=== PATIENT | female | born 1985 | race Caucasian/White ===

== ENCOUNTER 2023-06-13 19:48 | Observation (INO) ==
--- NOTE | 2023-06-13 20:06 | Emergency Department Note ---
History of Present Illness General Chief complaint: Cardiac Assessment Stated complaint: CHEST/BACK/ARM PAIN,RT SIDE, HEART ATTACK HISTORY Time Seen by Provider: 06/13/23 19:56 History of Present Illness Maximum Pain Intensity: 6 37-year-old female with a history of hypertension and acute ND, 1 stent last year, current smoker presents with an onset of right-sided chest pain that radiated to her shoulder and down her right arm. With also a headache; patient denies any significant shortness of breath hemoptysis trauma to her chest. Patient is taking 3 blood pressure medications as well she took aspirin prior to arrival. Patient states the pain is intermittent located in her right chest that radiates down her right arm. There are no other mitigating or alleviating factors Allergies Allergy/AdvReac Type Severity Reaction Status Date / Time cat dander Allergy Sneezing Verified 06/13/23 20:23 Penicillins Allergy Difficulty Verified 06/13/23 20:23 Breathing Past Med/Surg History Social History Smoking Status: Current every day smoker Preferred Language: Chinese Feels Safe at Home: Yes Immunizations: Past medical history coronary artery disease, hypertension, smoker Past surgical history includes 1 stent Review of Systems A total of 10 systems reviewed and were otherwise negative Cardiovascular: + chest pain Physical Exam Vital Signs Vital Signs - 24 hr 06/13/23 19:53 06/13/23 20:07 06/13/23 20:19 Temperature 36.4 C L Temperature Source Oral Pulse Rate 66 63 Pulse Rate [Apical] Pulse Rhythm [Apical] Respiratory Rate 18 Respiratory Effort / Characteristics Non-Labored Spontaneous Respiratory Depth Normal Respiratory Pattern Regular Blood Pressure 139/99 Blood Pressure [Right Arm] Blood Pressure Mean 112 Blood Pressure Mean [Right Arm] Blood Pressure Position Sitting Pulse Oximetry 94 95 Oxygen Delivery Method Room Air Room Air Sepsis Recent Fever Within 48 Hours No Sepsis New/Unexplained Change in Mental Status N/A Sepsis Action Taken by Nursing No Action Required 06/13/23 20:19 06/13/23 20:20 06/13/23 22:00 Temperature Temperature Source Pulse Rate 59 L Pulse Rate [Apical] 59 L 63 Pulse Rhythm [Apical] Regular Respiratory Rate 19 19 19 Respiratory Effort / Characteristics Non-Labored Respiratory Depth Normal Respiratory Pattern Regular Blood Pressure Blood Pressure [Right Arm] 157/100 H 181/108 H Blood Pressure Mean Blood Pressure Mean [Right Arm] 119 132 Blood Pressure Position Pulse Oximetry 94 95 96 Oxygen Delivery Method Room Air Room Air Sepsis Recent Fever Within 48 Hours Sepsis New/Unexplained Change in Mental Status Sepsis Action Taken by Nursing GENERAL: Patient is awake alert in no acute distress patient is resting comfortably and showing no signs of anxiety EYES: The conjunctivae are clear. The pupils are round and reactive. EARS, NOSE, MOUTH AND THROAT: The nose is without any evidence of any deformity. Mucous membranes are moist. Tongue is midline. NECK: The neck is nontender and supple. RESPIRATORY: Normal respiratory effort is noted there is no evidence of wheezing rhonchi or rales CARDIOVASCULAR: Regular rate and rhythm noted there no murmurs rubs or gallops normal S1 normal S2. GASTROINTESTINAL: The abdomen is soft. Abdomen is nontender. BACK: No midline tenderness or or step-off noted range of motion in flexion extension as well as rotation no signs of muscle spasm noted MUSCULOSKELETAL/EXTREMITIES: There is no evidence of gross deformity full range of motion is noted in the hips and shoulders. SKIN: There is no obvious evidence of any rash. There are no petechiae, pallor or cyanosis noted. NEUROLOGIC: Patient is awake alert and oriented x3 strength is symmetric Course Reevaluation(s) Reevaluation #1: Patient resting in no distress. No current chest pain. Patient has taken aspirin in the past 24 hours. Time: 22:20 Consultations Consultation #1: Case was discussed with the [facility]ist for admission Time: 22:20 Medical Decision Making Medical Records Attestation: I reviewed the patient's medical records. Home Medications Current Medication List: was personally reviewed by me Laboratory Data Attestation: I reviewed the patient's lab results. Labs interpreted by me are unremarkable 06/13/23 21:34 06/13/23 21:34 Lab Results 06/13/23 06/13/23 Range/Units 20:23 21:34 WBC Cancelled 6.99 RBC Cancelled 4.60 Hgb Cancelled 13.5 Hct Cancelled 39.8 MCV Cancelled 86.5 MCH Cancelled 29.3 MCHC Cancelled 33.9 RDW Std Deviation Cancelled 41.9 RDW Coeff of Loc Cancelled 13.6 Plt Count Cancelled 177 MPV Cancelled 10.7 Immature Gran % (Auto) Cancelled 0.4 Neut % (Auto) Cancelled 55.4 Lymph % (Auto) Cancelled 32.9 [place] % (Auto) Cancelled 8.3 Eos % (Auto) Cancelled 2.4 Baso % (Auto) Cancelled 0.6 Neut # (Auto) Cancelled 3.87 Lymph # (Auto) Cancelled 2.30 [place] # (Auto) Cancelled 0.58 Eos # (Auto) Cancelled 0.17 Baso # (Auto) Cancelled 0.04 Immature Gran # (Auto) Cancelled 0.03 Absolute Nucleated RBC Cancelled Nucleated RBC % (auto) Cancelled Neutrophils % (Manual) Cancelled Band Neutrophils % Cancelled Lymphocytes % (Manual) Cancelled Prolymphocyte % Cancelled Reactive Lymphs % (Man) Cancelled Monocytes % (Manual) Cancelled Eosinophils % (Manual) Cancelled Basophils % (Manual) Cancelled Metamyelocytes % (Man) Cancelled Myelocytes % (Man) Cancelled Promyelocytes % (Man) Cancelled Blast Cells % (Manual) Cancelled Plasma Cell % (Manual) Cancelled Other Cells % Cancelled Nucleated RBC % Cancelled Neutrophils # (Manual) Cancelled Band Neutrophils # Cancelled Total Absolute Neuts Cancelled Lymphocytes # (Manual) Cancelled Prolymphocyte # Cancelled Reactive Lymphs # Cancelled Total Abs Lymphocytes Cancelled Monocytes # (Manual) Cancelled Eosinophils # (Manual) Cancelled Basophils # (Manual) Cancelled Metamyelocytes # (Man) Cancelled Myelocytes # (Manual) Cancelled Promyelocytes # (Man) Cancelled Blast Cells # (Man) Cancelled Plasma Cell # (Manual) Cancelled Other Cells # Cancelled Nucleated RBCs # (Man) Cancelled Hypersegmented Neuts Cancelled Hyposegmented Neuts Cancelled Hypogranular Neuts Cancelled Large Granular Lymphs Cancelled # Lrg Granular Lymphs Cancelled Hairy Cells Cancelled Smudge Cells Cancelled Toxic Granulation Cancelled Toxic Vacuolation Cancelled Dohle Bodies Cancelled Kyle Rods Cancelled Platelet Estimate Cancelled Hypogranular Platelets Cancelled Giant Platelets Cancelled Platelet Satelliting Cancelled RBC Morphology Cancelled Polychromasia Cancelled Hypochromasia Cancelled Poikilocytosis Cancelled Basophilic Stippling Cancelled Anisocytosis Cancelled Microcytosis Cancelled Macrocytosis Cancelled Spherocytes Cancelled Pappenheimer Bodies Cancelled Sickle Cells Cancelled Target Cells Cancelled Tear Drop Cells Cancelled Ovalocytes Cancelled Stomatocytes Cancelled Bettencourt-[place] Bodies Cancelled Echinocytes Cancelled Acanthocytes (Spur) Cancelled Rouleaux Cancelled RBC Agglutinates Cancelled Schistocytes Cancelled Sezary Cell Cancelled PT Cancelled INR Cancelled APTT Cancelled PTT Ratio Cancelled Sodium 136 (136-145) mmol/L Potassium TNP 3.4 L Chloride 99 (98-107) mmol/L Carbon Dioxide 28 (21-32) mmol/L Anion Gap 9 (3-11) BUN 14 (6-23) mg/dl Creatinine 0.81 (0.6-1.2) mg/dl Est Cr Clr Drug Dosing 103.9 ml/min Est GFR ( Amer) 106.8 ml/min Est GFR (Non-Af Amer) 92.1 ml/min BUN/Creatinine Ratio 17.3 (10-20) Glucose 163 H (70-99(Fasting)) mg/dl Calcium 10.0 (8.6-10.3) mg/dl Total Bilirubin 0.6 (0.2-1.0) mg/dl AST TNP 20 ALT 21 (7-52) U/L Alkaline Phosphatase 62 (34-104) U/L Troponin I High Sens 4.4 (0-14) pg/ml Total Protein 7.2 (6.0-8.3) gm/dl Albumin 4.6 (3.4-5.0) gm/dl Globulin 2.6 (2.5-4.0) gm/dl Albumin/Globulin Ratio 1.8 (0.9-2) Blood Parasites ID Cancelled Imaging Data Attestation: I personally reviewed and interpreted this imaging study as follows: My Impression: Chest x-ray interpreted by me negative for infiltrate ECG Data Attestation: I personally reviewed and interpreted this ECG as follows: Additional Comments: EKG interpreted by me normal sinus rhythm rate of 60, nonspecific T abnormality, no obvious ST segment elevation or depression, normal axis MDM Narrative Medical decision making differential diagnosis includes angina, unstable angina, acute coronary syndrome, acute ND, musculoskeletal chest pain, costochondritis Plan is to check labs, EKG, chest x-ray Patient has taken aspirin prior to arrival Heart score is a 4 Patient has a prior LAD stent Case was discussed with the [facility] hospitalist for admission for rule out ACS Impression & Plan Chest pain Discharge Plan Visit Data Chief Complaint: Cardiac Assessment Stated Complaint: CHEST/BACK/ARM PAIN,RT SIDE, HEART ATTACK HISTORY ED Provider: Praveen Bravo Discharge Problem: Chest pain Patient Disposition: Admitted As Inpatient Forms Stand Alone Forms: [facility] Referrals Referrals: PCP,NO [Primary Care Provider] -
[2023-06-13 21:01] LABS: Troponin I High Sensitivity 4.4 pg/ml (0-14)
[2023-06-13 21:02] LABS: Alanine Aminotransferase 21 U/L (7-52); Albumin Globulin Ratio 1.8 (0.9-2); Albumin Level 4.6 gm/dl (3.4-5.0); Alkaline Phosphatase 62 U/L (34-104); Anion Gap 9 (3-11); BUN Creatinine Ratio 17.3 (10-20); Bilirubin,Total 0.6 mg/dl (0.2-1.0); Blood Urea Nitrogen 14 mg/dl (6-23); Carbon Dioxide 28 mmol/L (21-32); Chloride 99 mmol/L (98-107); Creatinine Clr Calc Pharmacy 103.9 ml/min; Est GFR (African American) 106.8 ml/min; Est GFR (Non-African American) 92.1 ml/min; Globulin 2.6 gm/dl (2.5-4.0); Glucose 163 mg/dl (70-99(Fasting)); Sodium 136 mmol/L (136-145); Total Protein 7.2 gm/dl (6.0-8.3)
[2023-06-13 22:00] LABS: Basophils # (auto) 0.04 K/uL (0.00-0.20); Basophils % (auto) 0.6 %; Eosinophils # (auto) 0.17 K/uL (0.00-0.50); Eosinophils % (auto) 2.4 %; Hematocrit (blood only) 39.8 % (37.0-47.0); Hemoglobin 13.5 g/dl (12.0-16.0); Immature Granulocytes # (auto) 0.03 K/uL (0.01-0.20); Immature Granulocytes % (auto) 0.4 %; Lymphocytes % (auto) 32.9 %; Mean Corpuscular Hemoglobin 29.3 pg (25.0-34.0); Mean Corpuscular Hgb Conc 33.9 g/dL (32.0-36.0); Mean Corpuscular Volume 86.5 fL (80.0-100.0); Mean Platelet Volume 10.7 fL (9.4-12.4); Monocytes # (auto) 0.58 K/uL (0.11-0.59); Monocytes % (auto) 8.3 %; Neutrophils # (auto) 3.87 K/uL (1.40-6.50); Neutrophils % (auto) 55.4 %; Platelet Count 177 K/uL (130-400); RDW Coefficient of Variation 13.6 % (11.5-14.5); RDW Standard Deviation 41.9 fL (36.4-46.3); White Blood Count 6.99 K/ul (4.8-10.8)
[2023-06-13 22:14] LABS: Potassium 3.4 mmol/L (3.5-5.1)
[2023-06-13 22:28] LABS: Partial Thromboplastin Ratio 0.9; Partial Thromboplastin Time 25 Seconds (21-31); Prothrombin Time 10.8 Seconds (9.0-12.0)
--- NOTE | 2023-06-14 01:15 | History & Physical Report ---
Date of Service June 14, 2023 Assessment & Plan (1) Chest pain: Plan: 37-year-old female with past medical history significant for CAD s/p stent on May 31, 2022 as per patient, hypertension, diabetes, depression, GERD presents with chest pain. Patient's states she is from [facility]. She is working in [employer]. Around 6 PM she noticed right-sided chest pain while walking at work radiating to the back and right arm 5 / 10 in severity and the pain lasted for 3 hours and resolved by itself. Currently pain-free. Denies any shortness of breath. No dizziness. No nausea. No sweating. No fevers. Recently had ear infection that got resolved. No runny nose or sore throat. Has smoker's cough. Denies any headache currently. Vision is okay. No abdominal pain. Normal bowel and bladder movements. Blood pressure somewhat running high in the ER. Chest pain History of CAD s/p stent Continue home aspirin, Plavix, beta-surekha and statin Initial troponin and EKG okay Will follow serial enzymes and echo and repeat mortar maker in telemetry N.p.o. for now Consult cardiology in a.m. for further recommendations Hypertensive urgency Continue home medications of lisinopril, hydrochlorothiazide, Coreg Will place on Nitropaste and monitor Diabetes Hold metformin Sliding scale Will monitor Depression Home meds. Ongoing tobacco abuse Needs counseling Obesity Needs counseling Nutrition follow-up DVT prophylaxis SCDs Disposition Observation med/tele Full code History of Present Illness Chief Complaint: Chest pain Primary Care Provider: NO PCP 37-year-old female with past medical history significant for CAD s/p stent on May 31, 2022 as per patient, hypertension, diabetes, depression, GERD presents with chest pain. Patient's states she is from [facility]. She is working in [employer]. Around 6 PM she noticed right-sided chest pain while walking at work radiating to the back and right arm 5 / 10 in severity and the pain lasted for 3 hours and resolved by itself. Currently pain-free. Denies any shortness of breath. No dizziness. No nausea. No sweating. No fevers. Recently had ear infection that got resolved. No runny nose or sore throat. Has smoker's cough. Denies any headache currently. Vision is okay. No abdominal pain. Normal bowel and bladder movements. Blood pressure somewhat running high in the ER. Past medical history. As mentioned above Past surgical history. Cardiac cath. Tubal ligation Social history. Smokes 5 cigarettes daily. Alcohol occasionally. No drug use. Family history. Both mother and father side had hypertension and diabetes. Mother side had heart disease. Allergies Allergy/AdvReac Type Severity Reaction Status Date / Time cat dander Allergy Sneezing Verified 06/13/23 20:23 Penicillins Allergy Difficulty Verified 06/13/23 20:23 Breathing Home Medications Medication Instructions Recorded Confirmed Type aspirin 81 mg tablet,delayed 81 mg PO DAILY 06/13/23 06/13/23 History release atorvastatin 80 mg tablet 80 mg PO QPM 06/13/23 06/13/23 History carvedilol 3.125 mg tablet 3.125 mg PO BID 06/13/23 06/13/23 History cetirizine 10 mg tablet 10 mg PO DAILY PRN ALLERGIES 06/13/23 06/13/23 History clopidogrel 75 mg tablet 75 mg PO DAILY 06/13/23 06/13/23 History cyanocobalamin (vitamin B-12) 500 500 mcg PO DAILY 06/13/23 06/13/23 History mcg tablet ferrous sulfate 325 mg (65 mg 325 mg PO DAILY 06/13/23 06/13/23 History iron) tablet (iron) fluoxetine 10 mg capsule 10 mg PO DAILY 06/13/23 06/13/23 History fluoxetine 20 mg capsule 20 mg PO DAILY 06/13/23 06/13/23 History fluticasone propionate 50 2 spray intranasal DAILY 06/13/23 06/13/23 History mcg/actuation nasal spray,suspension hydrochlorothiazide 25 mg tablet 25 mg PO DAILY 06/13/23 06/13/23 History lisinopril 20 mg tablet 20 mg PO DAILY 06/13/23 06/13/23 History metformin 500 mg tablet 500 mg PO DAILY 06/13/23 06/13/23 History metoprolol succinate 25 mg 25 mg PO BID 06/13/23 06/13/23 History tablet,extended release 24 hr omeprazole 40 mg capsule,delayed 40 mg PO DAILY 06/13/23 06/13/23 History release Past Med/Surg History Social History Smoking Status: Current every day smoker Tobacco Type: Cigarettes Do You Dip or Chew Tobacco: No; Hx Alcohol Use: Yes Alcohol type: hard liquor Hx Substance Use: No Preferred Language: Khmer 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 ENT- oropharynx clear Neck- supple, no JVD. Lungs- clear to auscultation no wheezing or crackles. Heart- regular rhythm; no murmur, no gallop. Abdomen- normal bowel sounds, soft, nontender, no distension. Extremities- no pretibial edema, no erythema seen. Neuro- alert, oriented PERRL, no facial palsy; no dysarthria; moves extremities. Skin- warm & dry Results & Data Results & Data Vital Signs (Past 12 Hours) Vital Signs Temp Pulse Pulse Resp BP BP Pulse Ox 06/14/23 00:13 60 06/13/23 23:00 62 17 159/107 H 94 06/13/23 22:00 63 19 181/108 H 96 06/13/23 20:20 59 L 19 95 06/13/23 20:19 59 L 19 157/100 H 94 06/13/23 20:19 95 06/13/23 20:07 63 06/13/23 19:53 36.4 C L 66 18 139/99 94 O2 Del Method 06/14/23 00:13 06/13/23 23:00 Room Air 06/13/23 22:00 06/13/23 20:20 Room Air 06/13/23 20:19 Room Air 06/13/23 20:19 Room Air 06/13/23 20:07 06/13/23 19:53 Room Air Diagnostic Findings Laboratory Results WBC 6.99 K/ul (4.8-10.8) 06/13/23 21:34 RBC 4.60 M/uL (4.20-5.40) 06/13/23 21:34 Hgb 13.5 g/dl (12.0-16.0) 06/13/23 21:34 Hct 39.8 % (37.0-47.0) 06/13/23 21:34 MCV 86.5 fL (80.0-100.0) 06/13/23 21:34 MCH 29.3 pg (25.0-34.0) 06/13/23 21: MCHC 33.9 g/dL (32.0-36.0) 06/13/23 21: RDW Std Deviation 41.9 fL (36.4-46.3) 06/13/23: RDW Coeff of Loc 13.6 % (11.5-14.5) 06/13/23: Plt Count 177 K/uL (130-400) 06/13/23 21: MPV 10.7 fL (9.4-12.4) 06/13/23: Immature Gran % (Auto) 0.4 % 06/13/23 21: Neut % (Auto) 55.4 % 06/13/23 21: Lymph % (Auto) 32.9 % 06/13/23 21: [place] % (Auto) 8.3 % 06/13/23 21:34 Eos % (Auto) 2.4 % 06/13/23 21:34 Baso % (Auto) 0.6 % 06/13/23 21: Neut # (Auto) 3.87 K/uL (1.40-6.50) 06/13/23: Lymph # (Auto) 2.30 K/uL (1.20-3.40) 06/13/23 21:34 [place] # (Auto) 0.58 K/uL (0.11-0.59) 06/13/23 21:34 Eos # (Auto) 0.17 K/uL (0.00-0.50) 06/13/23 21:34 Baso # (Auto) 0.04 K/uL (0.00-0.20) 06/13/23 21:34 Immature Gran # (Auto) 0.03 K/uL (0.01-0.20) 06/13/23 21:34 Absolute Nucleated RBC Cancelled 06/13/23 20:23 Nucleated RBC % (auto) Cancelled 06/13/23 20:23 Neutrophils % (Manual) Cancelled 06/13/23 20:23 Band Neutrophils % Cancelled 06/13/23 20:23 Lymphocytes % (Manual) Cancelled 06/13/23 20:23 Prolymphocyte % Cancelled 06/13/23 20:23 Reactive Lymphs % (Man) Cancelled 06/13/23 20:23 Monocytes % (Manual) Cancelled 06/13/23 20:23 Eosinophils % (Manual) Cancelled 06/13/23 20:23 Basophils % (Manual) Cancelled 06/13/23 20:23 Metamyelocytes % (Man) Cancelled 06/13/23 20:23 Myelocytes % (Man) Cancelled 06/13/23 20:23 Promyelocytes % (Man) Cancelled 06/13/23 20:23 Blast Cells % (Manual) Cancelled 06/13/23 20:23 Plasma Cell % (Manual) Cancelled 06/13/23 20:23 Other Cells % Cancelled 06/13/23 20:23 Nucleated RBC % Cancelled 06/13/23 20:23 Neutrophils # (Manual) Cancelled 06/13/23 20:23 Band Neutrophils # Cancelled 06/13/23 20:23 Total Absolute Neuts Cancelled 06/13/23 20:23 Lymphocytes # (Manual) Cancelled 06/13/23 20:23 Prolymphocyte # Cancelled 06/13/23 20:23 Reactive Lymphs # Cancelled 06/13/23 20:23 Total Abs Lymphocytes Cancelled 06/13/23 20:23 Monocytes # (Manual) Cancelled 06/13/23 20:23 Eosinophils # (Manual) Cancelled 06/13/23 20:23 Basophils # (Manual) Cancelled 06/13/23 20:23 Metamyelocytes # (Man) Cancelled 06/13/23 20:23 Myelocytes # (Manual) Cancelled 06/13/23 20:23 Promyelocytes # (Man) Cancelled 06/13/23 20:23 Blast Cells # (Man) Cancelled 06/13/23 20:23 Plasma Cell # (Manual) Cancelled 06/13/23 20:23 Other Cells # Cancelled 06/13/23 20:23 Nucleated RBCs # (Man) Cancelled 06/13/23 20:23 Hypersegmented Neuts Cancelled 06/13/23 20:23 Hyposegmented Neuts Cancelled 06/13/23 20:23 Hypogranular Neuts Cancelled 06/13/23 20:23 Large Granular Lymphs Cancelled 06/13/23 20:23 # Lrg Granular Lymphs Cancelled 06/13/23 20:23 Hairy Cells Cancelled 06/13/23 20:23 Smudge Cells Cancelled 06/13/23 20:23 Toxic Granulation Cancelled 06/13/23 20:23 Toxic Vacuolation Cancelled 06/13/23 20:23 Dohle Bodies Cancelled 06/13/23 20:23 Kyle Rods Cancelled 06/13/23 20:23 Platelet Estimate Cancelled 06/13/23 20:23 Hypogranular Platelets Cancelled 06/13/23 20:23 Giant Platelets Cancelled 06/13/23 20:23 Platelet Satelliting Cancelled 06/13/23 20:23 RBC Morphology Cancelled 06/13/23 20:23 Polychromasia Cancelled 06/13/23 20:23 Hypochromasia Cancelled 06/13/23 20:23 Poikilocytosis Cancelled 06/13/23 20:23 Basophilic Stippling Cancelled 06/13/23 20:23 Anisocytosis Cancelled 06/13/23 20:23 Microcytosis Cancelled 06/13/23 20:23 Macrocytosis Cancelled 06/13/23 20:23 Spherocytes Cancelled 06/13/23 20:23 Pappenheimer Bodies Cancelled 06/13/23 20:23 Sickle Cells Cancelled 06/13/23 20:23 Target Cells Cancelled 06/13/23 20:23 Tear Drop Cells Cancelled 06/13/23 20:23 Ovalocytes Cancelled 06/13/23 20:23 Stomatocytes Cancelled 06/13/23 20:23 Bettencourt-[place] Bodies Cancelled 06/13/23 20:23 Echinocytes Cancelled 06/13/23 20:23 Acanthocytes (Spur) Cancelled 06/13/23 20:23 Rouleaux Cancelled 06/13/23 20:23 RBC Agglutinates Cancelled 06/13/23 20:23 Schistocytes Cancelled 06/13/23 20:23 Sezary Cell Cancelled 06/13/23 20:23 PT 10.8 Seconds (9.0-12.0) 06/13/23 21:34 INR 1.0 (0.9-1.1) 06/13/23 21:34 APTT 25 Seconds (21-31) 06/13/23 21:34 PTT Ratio 0.9 06/13/23 21:34 Sodium 136 mmol/L (136-145) 06/13/23 20:23 Potassium 3.4 mmol/L (3.5-5.1) L 06/13/23 21:34 Chloride 99 mmol/L (98-107) 06/13/23 20:23 Carbon Dioxide 28 mmol/L (21-32) 06/13/23 20:23 Anion Gap 9 (3-11) 06/13/23 20:23 BUN 14 mg/dl (6-23) 06/13/23 20:23 Creatinine 0.81 mg/dl (0.6-1.2) 06/13/23 20:23 Est Cr Clr Drug Dosing 103.9 ml/min 06/13/23 20:23 Est GFR ( Amer) 106.8 ml/min 06/13/23 20:23 Est GFR (Non-Af Amer) 92.1 ml/min 06/13/23 20:23 BUN/Creatinine Ratio 17.3 (10-20) 06/13/23 20:23 Glucose 163 mg/dl (70-99(Fasting)) H 06/13/23 20:23 Calcium 10.0 mg/dl (8.6-10.3) 06/13/23 20:23 Total Bilirubin 0.6 mg/dl (0.2-1.0) 06/13/23 20:23 AST 20 U/L (13-39) 06/13/23 21:34 ALT 21 U/L (7-52) 06/13/23 20:23 Alkaline Phosphatase 62 U/L (34-104) 06/13/23 20:23 Troponin I High Sens 4.4 pg/ml (0-14) 06/13/23 20:23 Total Protein 7.2 gm/dl (6.0-8.3) 06/13/23 20:23 Albumin 4.6 gm/dl (3.4-5.0) 06/13/23 20:23 Globulin 2.6 gm/dl (2.5-4.0) 06/13/23 20:23 Albumin/Globulin Ratio 1.8 (0.9-2) 06/13/23 20:23 Blood Parasites ID Cancelled 06/13/23 20:23 ECG Additional Comments: ECG. Normal sinus rhythm rate of 60. Nonspecific T wave abnormality. Code Status & VTE Plan VTE Prophylaxis Plan VTE Prophylaxis will be ordered: Yes
[2023-06-14] MEDS ORDERED: POLYETHYLENE (MIRALAX) 17 GM PACK PO PRN (01:21)
[2023-06-14] MEDS ORDERED: ACETAMINOPHEN 325 MG TAB PO PRN (01:21)
[2023-06-14] MEDS ORDERED: CETIRIZINE HCL 10 MG TABLET PO PRN (01:21)
[2023-06-14] MEDS ORDERED: NITROGLYCERIN SL 0.4 MG/TAB TAB SL PRN (01:21)
[2023-06-14 01:42] VITALS: TEMP 98.8
[2023-06-14] MEDS: NITROGLYCERIN 2% OINTMENT 30GM TUBE EXT SCH (01:44)
[2023-06-14 06:39] LABS: Basophils # (auto) 0.05 K/uL (0.00-0.20); Basophils % (auto) 0.7 %; Eosinophils # (auto) 0.17 K/uL (0.00-0.50); Eosinophils % (auto) 2.5 %; Hematocrit (blood only) 40.4 % (37.0-47.0); Hemoglobin 13.8 g/dl (12.0-16.0); Immature Granulocytes # (auto) 0.02 K/uL (0.01-0.20); Immature Granulocytes % (auto) 0.3 %; Lymphocytes # (auto) 2.47 K/uL (1.20-3.40); Lymphocytes % (auto) 36.5 %; Mean Corpuscular Hemoglobin 29.5 pg (25.0-34.0); Mean Corpuscular Hgb Conc 34.2 g/dL (32.0-36.0); Mean Corpuscular Volume 86.3 fL (80.0-100.0); Mean Platelet Volume 10.8 fL (9.4-12.4); Monocytes % (auto) 8.9 %; Neutrophils # (auto) 3.46 K/uL (1.40-6.50); Neutrophils % (auto) 51.1 %; Platelet Count 175 K/uL (130-400); RDW Coefficient of Variation 13.4 % (11.5-14.5); RDW Standard Deviation 41.8 fL (36.4-46.3); Red Blood Count 4.68 M/uL (4.20-5.40); White Blood Count 6.77 K/ul (4.8-10.8)
[2023-06-14 06:50] LABS: BUN Creatinine Ratio 20.3 (10-20); Calcium 9.2 mg/dl (8.6-10.3); Creatinine Clr Calc Pharmacy 113.7 ml/min; Est GFR (African American) 119.1 ml/min; Est GFR (Non-African American) 102.8 ml/min; Magnesium 1.8 mg/dl (1.7-2.4); Potassium 3.5 mmol/L (3.5-5.1)
[2023-06-14 06:56] LABS: Troponin I High Sensitivity 4.6 pg/ml (0-14)
[2023-06-14 07:11] LABS: Estimated Average Glucose 140 mg/dl; Hemoglobin A1C 6.5 % (4.5-5.6)
--- NOTE | 2023-06-14 07:27 | XRay Report ---
XR chest 1V portable CLINICAL HISTORY: Chest pain, nonspecific COMPARISON STUDY: No previous studies for comparison. FINDINGS: Lung volumes are normal. No definite consolidation is identified to suggest pneumonia. Hazy densities projecting over the lower lungs are likely artifactual. There is no pneumothorax or pleura l effusion. Cardiac size is normal. Mediastinal contours are normal. There is no evidence for pulmona ry edema. IMPRESSION: 1. No acute cardiopulmonary findings. 2. Hazy densities projecting over the lower lungs which are likely artifactual. An infectious process could appear similar although is considered less likely. ACT 112: Negative or not required by law. Electronically signed by: John Doherty M.D. 06/14/2023 7:25 AM
--- NOTE | 2023-06-14 08:19 | Cardiology Consultation ---
Date of Consultation June 14, 2023 Assessment & Plan (1) Chest pain: (2) History of coronary artery disease: (3) Hypertension: Plan Assessment: 37 year old female with PMHx of a STEMI one year ago presents with elevated blood pressures, recent URI and chest pain lasting approx 5-6 hours, resolved spontaneously. No acute EKG changes and negative troponin. Plan: 1. Chest pain 2. History of CAD -Atypical chest pain episode as noted with prior history of an acute STEMI on e year prior requiring PCI with OPAL to the LAD. No records available for review. -Please obtain records from [facility] as well as last OV note from her primary field test engineer at [facility] -Echocardiogram obtained today demonstrates LVEF 65-70%, normal LV wall motion, borderline concentric LVH and no valvular disease. -Treadmill exercise stress test today is negative for inducible ischemia, and no further cardiac work up is warranted. -Concern for ongoing upper respiratory infectious process given recent URI and physical exam findings. Continued management per primary team. -Continue GDMT with ASA 81mg, Atorvastatin 80mg, Coreg 3.125mg PO BID, Plavix 75mg. Stop Lisinopiril in favor of starting Losartan 100mg QD. We will also add Amlodipine 5mg QD to her regimen. 3. HTN: -Patient was initially quite hypertensive on arrival, pressures now at high end of target. -patient did have positive BP response/elevation in the final stage of her stress test. -Continue Coreg 3.125mg BID, and HCTZ 25mg daily. Stop Lisinopril and start Losartan 100mg PO QD. We will also add Amlodipine 5mg PO QD. Recommend close follow up with further med titration with her primary field test engineer. Case has been discussed with Dr. Almaraz. Further recommendations regarding plan of care as per his assessment. I spent a total of 40 minutes on the date of service in preparation, delivery, documentation of the care provided to the patient excluding any time spent in the performance of separately billed services. KIESHA Valdez [facility] Supervising Physician Co-Signing Physician Notes Patient was seen and personally examined. I spent an additional 20 minutes on the date of service in preparation, delivery, documentation of care in addition to above provided by advanced provider. Assessment and plan discussed in detail and reviewed prior documentation Impression: 37-year-old female with known coronary disease prior coronary intervention presented with atypical chest pain in the setting of cough and several days increased respiratory distress. EKGs cardiac enzymes without injury or pattern to suggest acute coronary syndrome Patient presented with significant hypertensive urgency Exam notable for bronchovesicular sounds and rhonchi bibasilar worse with cough Patient underwent stress echocardiogram exercising for 9 minutes on a Charles protocol, estimated 10.1 METS without cardiac symptoms other than cough. No evidence of ischemia by EKG or echocardiographic criteria Recommendations as above. Treat underlying respiratory issues as well as hypertensive disease. Patient to follow-up with primary field test engineer in [place] History of Present Illness Reason for Consultation: Chest pain Requesting Physician: Jerad Salcedo Attending Physician: Darby Virgen MD History of Present Illness HPI: Patient is a 37 year old female with PMHx significant for HTN and an acute AL May 2022 receiving 1 stent last year to the LAD, current tobacco use that presented to the ED with complaints of right sided chest pain that radiated to her right shoulder and down her right arm. She states that she woke feeling her usual state of health and went to work. While at work she developed sudden onset right sided intense chest pain, sharp with radiation across/under her right breast and into her right arm. She states she was not under any stress at the time of the event, and was not doing anything exertional. She denies any associated symptoms, no aggravating or alleviating factors. Pain lasted approx 5-6 hours and resolved spontaneously, but did not vary in intensity. She states that this discomfort is very different from her AL one year ago. EKG on admission demonstrates NSR with nonspecific T wave abnormality. No prior EKG for review. BP with significant elevation 180's/100 systolic. Patient states that she has been noticing a steady increase in her BP over the past 3-4 months for which she has been following with her PCP for. Denies any prior CP events associated with this. Only endorses headaches. Patient was at [facility] in spring when she had her last cardiac event. She follows with [facility]. Troponin negative x2 Patient was seen and examined in the ER this morning. She denies any recurrence of chest pain. BP is controlled at this time. Patient reports compliance with all medication therapies with no untoward effects. She does note that she was sick with a sinus/URI infection and right ear infection approx 2 months ago and required more than one antibiotic. she reports resolution of her symptoms, but continues with a course non-productive cough. Patient denies any fevers or chills. She does smoke and reports 5-6 cigarettes per day. Allergies Allergy/AdvReac Type Severity Reaction Status Date / Time cat dander Allergy Sneezing Verified 06/13/23 20:23 Penicillins Allergy Difficulty Verified 06/13/23 20:23 Breathing Home Medications Medication Instructions Recorded Confirmed Type aspirin 81 mg tablet,delayed 81 mg PO DAILY 06/13/23 06/13/23 History release atorvastatin 80 mg tablet 80 mg PO QPM 06/13/23 06/13/23 History carvedilol 3.125 mg tablet 3.125 mg PO BID 06/13/23 06/13/23 History cetirizine 10 mg tablet 10 mg PO DAILY PRN ALLERGIES 06/13/23 06/13/23 History clopidogrel 75 mg tablet 75 mg PO DAILY 06/13/23 06/13/23 History cyanocobalamin (vitamin B-12) 500 500 mcg PO DAILY 06/13/23 06/13/23 History mcg tablet ferrous sulfate 325 mg (65 mg 325 mg PO DAILY 06/13/23 06/13/23 History iron) tablet (iron) fluoxetine 10 mg capsule 10 mg PO DAILY 06/13/23 06/13/23 History fluoxetine 20 mg capsule 20 mg PO DAILY 06/13/23 06/13/23 History fluticasone propionate 50 2 spray intranasal DAILY 06/13/23 06/13/23 History mcg/actuation nasal spray,suspension hydrochlorothiazide 25 mg tablet 25 mg PO DAILY 06/13/23 06/13/23 History metformin 500 mg tablet 500 mg PO DAILY 06/13/23 06/13/23 History omeprazole 40 mg capsule,delayed 40 mg PO DAILY 06/13/23 06/13/23 History release amlodipine 5 mg tablet (Norvasc) 5 mg PO QAM #30 tabs 06/14/23 Rx losartan 100 mg tablet 100 mg PO DAILY #30 tabs 06/14/23 Rx Patient History Social History Smoking Status: Current every day smoker Tobacco Type: Cigarettes Do You Dip or Chew Tobacco: No; Hx Alcohol Use: Yes Alcohol type: hard liquor Hx Substance Use: No Preferred Language: Nepali Communication Ability: Effective 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 wheeze in bilateral upper lobes) Cardiovascular: Rate/Rhythm: regular rate and regular rhythm Heart Sounds: normal S1 and normal S2; no murmur Vessels: no JVD Gastrointestinal (Abdomen): Inspection/Auscultation: no abdominal edema Skin: no rashes, warm and dry Psychiatric: A+Ox3, euthymic affect Results & Data Vital Signs (Past 12 Hours) Vital Signs Temp Pulse Pulse Resp BP BP Pulse Ox 06/14/23 07:52 61 06/14/23 07:10 61 16 96 06/14/23 05:18 62 21 06/14/23 05:18 152/94 H 06/14/23 05:00 62 21 06/14/23 04:00 60 18 06/14/23 03:00 59 L 17 06/14/23 02:00 56 L 22 06/14/23 01:50 56 L 16 163/85 H 95 06/14/23 01:37 163/85 H 06/14/23 01:37 56 L 19 06/14/23 01:37 37.1 C 55 L 14 163/85 H 98 06/14/23 01:01 163/85 H 06/14/23 01:01 66 14 92 06/14/23 01:00 67 23 96 06/14/23 01:00 77 17 146/88 H 96 06/14/23 00:31 57 L 22 93 06/14/23 00:13 60 06/14/23 00:00 85 16 96 06/13/23 23:00 62 17 159/107 H 94 06/13/23 22:00 63 19 181/108 H 96 06/13/23 20:20 59 L 19 95 06/13/23 20:19 59 L 19 157/100 H 94 06/13/23 20:19 95 O2 Del Method 06/14/23 07:52 06/14/23 07:10 Room Air 06/14/23 05:18 06/14/23 05:18 06/14/23 05:00 06/14/23 04:00 06/14/23 03:00 06/14/23 02:00 06/14/23 01:50 Room Air 06/14/23 01:37 06/14/23 01:37 06/14/23 01:37 Room Air 06/14/23 01:01 06/14/23 01:01 06/14/23 01:00 06/14/23 01:00 Room Air 06/14/23 00:31 06/14/23 00:13 06/14/23 00:00 06/13/23 23:00 Room Air 06/13/23 22:00 06/13/23 20:20 Room Air 06/13/23 20:19 Room Air 06/13/23 20:19 Room Air Laboratory Results Cardiac Enzymes 06/13/23 06/13/23 06/14/23 Range/Units 20:23 21:34 06:05 AST TNP 20 Troponin I High Sens 4.4 4.6 (0-14) pg/ml Coagulation 06/13/23 06/13/23 Range/Units 20:23 21:34 PT Cancelled 10.8 APTT Cancelled 25 CBC 06/13/23 06/13/23 06/14/23 Range/Units 20:23 21:34 06:05 WBC Cancelled 6.99 6.77 RBC Cancelled 4.60 4.68 Hgb Cancelled 13.5 13.8 Hct Cancelled 39.8 40.4 Plt Count Cancelled 177 175 Neut # (Auto) Cancelled 3.87 3.46 Lymph # (Auto) Cancelled 2.30 2.47 [place] # (Auto) Cancelled 0.58 0.60 H Eos # (Auto) Cancelled 0.17 0.17 Baso # (Auto) Cancelled 0.04 0.05 Comprehensive Metabolic Panel 06/13/23 06/13/23 06/14/23 Range/Units 20:23 21:34 06:05 Sodium 136 137 (136-145) mmol/L Potassium TNP 3.4 L 3.5 Chloride 99 100 (98-107) mmol/L Carbon Dioxide 28 30 (21-32) mmol/L BUN 14 15 (6-23) mg/dl Creatinine 0.81 0.74 (0.6-1.2) mg/dl Glucose 163 H 124 H (70-99(Fasting)) mg/dl Calcium 10.0 9.2 (8.6-10.3) mg/dl AST TNP 20 ALT 21 (7-52) U/L Alkaline Phosphatase 62 (34-104) U/L Total Protein 7.2 (6.0-8.3) gm/dl Albumin 4.6 (3.4-5.0) gm/dl Intake and Output 06/13/23 06/14/23 06/14/23 22:59 06:59 14:59 Other: Weight 92.7 kg 92.7 kg Weight Measurement Method Chair Scale Built in [facility] Diagnostic Findings Echocardiogram 06/14/23 Sinus Bradycardia Left ventricle normal in size Borderline concentric LVH LV wall motion is normal LVEF 65-70% no valvular diseae. Chest xray 06/13/23 IMPRESSION: 1. No acute cardiopulmonary findings. 2. Hazy densities projecting over the lower lungs which are likely artifactual. An infectious process could appear similar although is considered less likely.
[2023-06-14] MEDS: FERROUS SULFATE 325 MG TAB PO SCH (09:20)
[2023-06-14] MEDS: carvediloL 3.125 MG TAB PO SCH (09:20)
[2023-06-14] MEDS: FLUoxetine HCL 10 MG CAP PO SCH (09:20)
[2023-06-14] MEDS: CLOPIDOGREL BISULFATE 75 MG TAB PO SCH (09:20)
[2023-06-14] MEDS: ASPIRIN 81 MG ECTAB PO SCH (09:20)
[2023-06-14] MEDS: PANTOprazole 40 MG TAB PO SCH (09:21)
[2023-06-14] MEDS: CYANOCOBALAMIN (B-12) 500 MCG TABLET PO SCH (09:21)
[2023-06-14] MEDS: hydroCHLOROthiazide 25 MG TAB PO SCH (09:21)
[2023-06-14] MEDS: lisinopril 20 MG TAB PO SCH (09:21)
[2023-06-14] MEDS: FLUoxetine HCL 20 MG CAP PO SCH (09:21)
[2023-06-14] MEDS: FLUTICASONE PROPIONATE NA SPR 16 GM BTL SCH (11:19)
--- NOTE | 2023-06-14 12:22 | Electrocardiogram Report ---
Test Reason : Blood Pressure : / mmHG Vent. Rate : 060 BPM Atrial Rate : 060 BPM P-R Int : 158 ms QRS Dur : 086 ms QT Int : 410 ms P-R-T Axes : 049 035 -46 degrees QTc Int : 410 ms Normal sinus rhythm Nonspecific T wave abnormality Abnormal ECG No previous ECGs available Confirmed by Elliot Shields ([id number]) on 06/14/2023 12:22:23 PM Referred By: REFERRED SELF Confirmed By:Elliot Shields
[2023-06-14] MEDS ORDERED: amLODIPine BESYLATE 5 MG TAB PO SCH (13:00)
[2023-06-14 14:06] VITALS: BP 136/98; PULSE 69; RESP 18; O2SAT 96
--- NOTE | 2023-06-14 14:09 | Discharge Summary ---
Discharge Summary Date of Service June 14, 2023 Notes For Next Care Provider Encouraged patient to follow with Primary Shopfitter for HTN control and 2/2 HTN work up if necessary Medication Changes From Visit Discontinued Lisinopril Start Losartan 100mg daily and amlodipine 5mg daily Admission HPI Per Admitting Provider 37-year-old female with past medical history significant for CAD s/p stent on May 31, 2022 as per patient, hypertension, diabetes, depression, GERD presents with chest pain. Patient's states she is from [facility]. She is working in [place]. Around 6 PM she noticed right-sided chest pain while walking at work radiating to the back and right arm 5 / 10 in severity and the pain lasted for 3 hours and resolved by itself. Currently pain-free. Denies any shortness of breath. No dizziness. No nausea. No sweating. No fevers. Recently had ear infection that got resolved. No runny nose or sore throat. Has smoker's cough. Denies any headache currently. Vision is okay. No abdominal pain. Normal bowel and bladder movements. Blood pressure somewhat running high in the ER. Past medical history. As mentioned above Past surgical history. Cardiac cath. Tubal ligation Social history. Smokes 5 cigarettes daily. Alcohol occasionally. No drug use. Family history. Both mother and father side had hypertension and diabetes. Mother side had heart disease. Admission Exam Per Admitting Provider General- Not in distress Head- atraumatic Eyes- PERRL. ENT- oropharynx clear Neck- supple, no JVD. Lungs- clear to auscultation no wheezing or crackles. Heart- regular rhythm; no murmur, no gallop. Abdomen- normal bowel sounds, soft, nontender, no distension. Extremities- no pretibial edema, no erythema seen. Neuro- alert, oriented PERRL, no facial palsy; no dysarthria; moves extremities. Skin- warm & dry Principal Dx & Hospital Course #1 = Principal Diagnosis (1) Chest pain: Ms. Chamorro is a 37-year-old female with past medical history significant for CAD s/p stent on May 31, 2022 as per patient, hypertension, diabetes, depression, GERD presents with chest pain. Patient's states she is from [facility]. She is working in [place]. Around 6 PM she noticed right-sided chest pain while walking at work radiating to the back and right arm 5 / 10 in severity and the pain lasted for 3 hours and resolved by itself. Patient has remained chest pain free since admission. She underwent eval with Stress Echo which was negative for inducible ischemia and no wall motion abnormalities were noted. #Noncardiac Chest pain #History of CAD s/p stent Continue home aspirin, Plavix, beta-surekha and statin Initial troponin and EKG okay, repeat troponin negative Consult cardiology Reviewed Notes and discussed with Luis M POP: discontinue lisinopril, start losartan 100mg daily and amlodipine 5mg Clear for discharge with PCP and cards f/u #Hypertensive urgency *resolved Continue home HCTZ and coreg Stop lisinopril Start losartan and amlodipine as above #Diabetes Resume home metformin #Depression Home meds. #Ongoing tobacco abuse precontemplative #Obesity Discussed, no open for further lifestyle discussions at this itm e On day of discharge, patient was chest pain free and denied any acute concerns. Patient reports recently completing treatment for URI, denies any neck pain or symptoms, and not really sure the reasoning behind the symptoms experienced. Patient with PCP follow up on Sunday Discharge Exam Constitutional WD/WN, vitals as above Respiratory normal respiratory effort, lungs clear to auscultation Cardiovascular RRR, no murmur, no edema Gastrointestinal (Abdomen) normal bowel sounds, soft, nontender, no hepatosplenomegaly Updated Medication List Medication Instructions Recorded Confirmed Type aspirin 81 mg tablet,delayed 81 mg PO DAILY 06/13/23 06/13/23 History release atorvastatin 80 mg tablet 80 mg PO QPM 06/13/23 06/13/23 History carvedilol 3.125 mg tablet 3.125 mg PO BID 06/13/23 06/13/23 History cetirizine 10 mg tablet 10 mg PO DAILY PRN ALLERGIES 06/13/23 06/13/23 History clopidogrel 75 mg tablet 75 mg PO DAILY 06/13/23 06/13/23 History cyanocobalamin (vitamin B-12) 500 500 mcg PO DAILY 06/13/23 06/13/23 History mcg tablet ferrous sulfate 325 mg (65 mg 325 mg PO DAILY 06/13/23 06/13/23 History iron) tablet (iron) fluoxetine 10 mg capsule 10 mg PO DAILY 06/13/23 06/13/23 History fluoxetine 20 mg capsule 20 mg PO DAILY 06/13/23 06/13/23 History fluticasone propionate 50 2 spray intranasal DAILY 06/13/23 06/13/23 History mcg/actuation nasal spray,suspension hydrochlorothiazide 25 mg tablet 25 mg PO DAILY 06/13/23 06/13/23 History metformin 500 mg tablet 500 mg PO DAILY 06/13/23 06/13/23 History omeprazole 40 mg capsule,delayed 40 mg PO DAILY 06/13/23 06/13/23 History release amlodipine 5 mg tablet (Norvasc) 5 mg PO QAM #30 tabs 06/14/23 Rx losartan 100 mg tablet 100 mg PO DAILY #30 tabs 06/14/23 Rx Hospital Stay Data Consultations 06/13/23 22:15 ED Decision to Admit Stat 06/14/23 08:00 Consult Cardiology Routine Pending Results Patient Have Any Pending Studies at Discharge: No Discharge Instructions Given to Patient (Per Discharging Provider) You were admitted for chest pain. Cardiology was consulted and there was no sign of acute heart blockages or issues. Your stress test was negative. The Cardiology team made some changes to your medications: -Discontinue Lisinopril 20mg -Start Losartan 100mg daily -Start Amlodipine 5mg daily -Continue HCTZ 25mg daily and Coreg 3.125 two times daily Please continue all other medications as prescribed. Please ensure your Primary Shopfitter adjusts your heart medications accordingly. Total Time Total Time Spent Total Time Spent (In Minutes): 45
[2023-06-14] MEDS ORDERED: ATORVASTATIN 40 MG TAB PO SCH (21:00)
[2023-06-15] MEDS ORDERED: LOSARTAN POTASSIUM 50 MG TAB PO SCH (09:00)
== END 2023-06-14 20:58 | disposition home or self-care (01) ==
LOC: ED 19:48 → EDINP 19:48 → SUATTDRO 06-14 01:03 → EDINP 06-14 01:22
DX: I16.0 Hypertensive urgency; E66.9 Obesity, unspecified; F32.A Depression, unspecified; Z88.0 Allergy status to penicillin; Z68.35 Body mass index [BMI] 35.0-35.9, adult; R07.89 Other chest pain; F17.210 Nicotine dependence, cigarettes, uncomplicated; I25.10 Atherosclerotic heart disease of native coronary artery without angina pectoris; Z79.02 Long term (current) use of antithrombotics/antiplatelets; I25.2 Old myocardial infarction; Z79.899 Other long term (current) drug therapy; Z79.82 Long term (current) use of aspirin; K21.9 Gastro-esophageal reflux disease without esophagitis; E11.9 Type 2 diabetes mellitus without complications; Z79.84 Long term (current) use of oral hypoglycemic drugs; Z95.5 Presence of coronary angioplasty implant and graft

== ENCOUNTER 2023-06-21 07:48 | Observation (INO) ==
[2023-06-21 08:23] LABS: Basophils # (auto) 0.05 K/uL (0.00-0.20); Basophils % (auto) 0.7 %; Eosinophils # (auto) 0.12 K/uL (0.00-0.50); Eosinophils % (auto) 1.7 %; Hematocrit (blood only) 40.7 % (37.0-47.0); Hemoglobin 13.9 g/dl (12.0-16.0); Immature Granulocytes # (auto) 0.04 K/uL (0.01-0.20); Immature Granulocytes % (auto) 0.6 %; Lymphocytes # (auto) 1.51 K/uL (1.20-3.40); Mean Corpuscular Hemoglobin 29.3 pg (25.0-34.0); Mean Corpuscular Hgb Conc 34.2 g/dL (32.0-36.0); Mean Corpuscular Volume 85.7 fL (80.0-100.0); Monocytes # (auto) 0.91 K/uL (0.11-0.59); Monocytes % (auto) 13.2 %; Neutrophils # (auto) 4.24 K/uL (1.40-6.50); Neutrophils % (auto) 61.8 %; Platelet Count 176 K/uL (130-400); RDW Coefficient of Variation 13.2 % (11.5-14.5); RDW Standard Deviation 40.9 fL (36.4-46.3); Red Blood Count 4.75 M/uL (4.20-5.40); White Blood Count 6.87 K/ul (4.8-10.8)
--- NOTE | 2023-06-21 08:23 | Emergency Department Note ---
Impression & Plan CHAVO (acute kidney injury), Syncope, Hypotension, Medication side effect ED Provider Note NAME: CONCHA BONNER AGE: 37 SEX: F : 1985 ARRIVES VIA: Ambulance INFORMANT: Patient, ED PROVIDER(S): Tony Woodson MD CHIEF COMPLAINT: Syncope, MEDICAL DECISION MAKING: Patient presented due to concern for syncope. IV was established and blood work was obtained. The patient was noted to be hypotensive and was ordered IV fluids. Patient still has softer blood pressures and the patient was ordered additional IV fluids.Blood work shows a normal white count H&H and platelet count. Kidney function with a creatinine of 1.6 which is an acute change. Patient does have acute kidney injury as the patient's kidney function has doubled patient's BSG of 193. Troponin is not elevated. Given the patient's CHAVO and hypotension which I believe may be secondary to too much antihypertensives as well as concomitant dehydration I did speak with the on-call hospitalist Dr. Jacinto álvarez and the patient was admitted to the medicine service. Discussion w/ other healthcare providers: Dr. Casey trauma [facility] medicine service Prior /Outside records reviewed: I did review discharge summary from Dr. Virgen from June 06, 2023. Patient with a known history of CAD status post stent May hypertension diabetes depression and reflux. Was advised that the patient was CAD discontinue lisinopril start losartan and amlodipine. I also reviewed a cardiology consultation from KIESHA Lagunas. Patient did have an echocardiogram that was completed June 13 with LVEF of 65 to 70% with normal LV wall motion and no valvular disease. Patient did have a treadmill exercise stress test which was negative for inducible ischemia. Differential diagnosis: Benign positional vertigo, dehydration, hypovolemia, anemia, infection, hypoglycemia, electrolyte abnormalities, arrhythmia, tox among others were considered. Diagnostics, as interpreted by me: ECG: Normal sinus rhythm, rate of 69, normal intervals, normal axis no ST elevations, T wave inversions in the lateral leads. Cardiac monitoring: An order was placed for continuous cardiac monitoring. The monitor shows a rate of 72 with sinus rhythm. Patient was placed on pulse oximetry Medical decision rules: None Imaging studies: I informally interpreted the patient's chest x-ray shows possible overpenetration without obvious pneumonia or pneumothorax. with formal report to follow. HPI: Patient presents due to concern for dizziness and syncope. The patient states that she was eating a hot dog this morning when she did not feel quite right. The patient states that she did feel lightheaded and dizzy. 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 No tongue biting or incontinence no history of seizures. The patient denies any chest pains or shortness of breath. Patient denies any vomiting or diarrhea. The patient was treated for a bilateral otitis media recently and did complete 17 days of antibiotics. The patient had been on a 7- day course of antibiotics initially and subsequently 10 days thereafter which she completed about a week ago. Patient is a smoker. The patient has had productive cough with green sputum. This does appear worse than her typical smoker's cough. PAST MEDICAL HISTORY: See Below PAST SURGICAL HISTORY: See Below SOCIAL HISTORY: See Below HOME MEDICATIONS: See Below ALLERGIES: See Below VITALS: See Below PHYSICAL EXAMINATION: GENERAL: NAD, non-toxic. EYE EXAM: Normal conjunctiva. PERRL, no anisocoria and EOM's grossly intact w/o pain. OROPHARYNX: Moist mucus membranes, grossly normal dentition. NECK: Trachea midline, no stridor. Supple, no nuchal rigidity, no adenopathy, non-tender. No signs of meningismus. FROM of the neck with good chin to chest and neck extension. LUNGS: Wheezing noted bilaterally normal chest wall mechanics. HEART: NSR, no MRG. ABDOMEN: Abdomen soft, non-tender, no masses, no rebound or guarding. BACK: No CVA TTP. SKIN: No rashes and no bruising. UPPER EXTREMITIES: Upper extremities are grossly normal. LOWER EXTREMITIES: Grossly normal, no edema. NEURO EXAM: A&O x3, cranial nerves II-XII grossly intact, normal speech, moves all 4 extremities. 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 Beliefs That Will Affect Care: None Current Living Situation: Family Other Information That Helps Us Care for You: No Feels Safe at Home: Yes Safety Concerns: Feels Safe At This Time Assistive Devices: None Allergies Allergies Allergy/AdvReac Type Severity Reaction Status Date / Time spinach Allergy Severe Swelling Unverified 06/21/23 11:10 of Lip/Tongue/Throat cat dander Allergy Sneezing Verified 06/21/23 11:09 Penicillins Allergy Difficulty Verified 06/21/23 11:09 Breathing Home Meds Home Medications Medication Instructions Recorded Confirmed aspirin 81 mg tablet,delayed 81 mg PO QAM 06/13/23 06/21/23 release atorvastatin 80 mg tablet 80 mg PO QPM 06/13/23 06/21/23 cetirizine 10 mg tablet 10 mg PO DAILY PRN ALLERGIES 06/13/23 06/21/23 clopidogrel 75 mg tablet 75 mg PO DAILY 06/13/23 06/21/23 cyanocobalamin (vitamin B-12) 500 500 mcg PO DAILY 06/13/23 06/21/23 mcg tablet ferrous sulfate 325 mg (65 mg 325 mg PO DAILY 06/13/23 06/21/23 iron) tablet (iron) fluoxetine 10 mg capsule 0 mg PO DAILY 06/13/23 06/21/23 fluoxetine 20 mg capsule 0 mg PO DAILY 06/13/23 06/21/23 fluticasone propionate 50 2 spray intranasal DAILY 06/13/23 06/21/23 mcg/actuation nasal spray,suspension hydrochlorothiazide 25 mg tablet 25 mg PO DAILY 06/13/23 06/21/23 metformin 500 mg tablet 500 mg PO DAILY 06/13/23 06/21/23 omeprazole 40 mg capsule,delayed 40 mg PO DAILY 06/13/23 06/21/23 release carvedilol 6.25 mg tablet 6.25 mg PO BID 06/21/23 06/21/23 Previous Rx's Medication Instructions Recorded amlodipine 5 mg tablet (Norvasc) 5 mg PO QAM #30 tabs 06/14/23 losartan 100 mg tablet 100 mg PO DAILY #30 tabs 06/14/23 Results & Data (ED) Vital Signs Vital Signs - 24 hr 04/04/24 07:49 06/21/23 08:02 06/21/23 08:06 Temperature 36.4 C L Temperature Source Oral Pulse Rate - Lying Pulse Rate - Sitting Pulse Rate - Standing Pulse Rate 72 Pulse Rate [Apical] Pulse Rhythm [Apical] Respiratory Rate 16 Respiratory Effort / Characteristics Non-Labored Spontaneous Respiratory Depth Normal Respiratory Pattern Regular Blood Pressure - Lying Blood Pressure - Sitting Blood Pressure- Standing Blood Pressure 91/61 L Blood Pressure [Left Arm] Blood Pressure Mean 71 Blood Pressure Mean [Left Arm] Blood Pressure Position Lying Pulse Oximetry 96 Oxygen Delivery Method Room Air Room Air Room Air Sepsis Recent Fever Within 48 Hours No Sepsis New/Unexplained Change in Mental Status No Sepsis Action Taken by Nursing No Action Required 06/21/23 08:06 06/21/23 08:09 06/21/23 08:13 Temperature Temperature Source Pulse Rate - Lying 70 Pulse Rate - Sitting 71 Pulse Rate - Standing 82 Pulse Rate 75 Pulse Rate [Apical] Pulse Rhythm [Apical] Respiratory Rate Respiratory Effort / Characteristics Respiratory Depth Respiratory Pattern Blood Pressure - Lying 84/57 L Blood Pressure - Sitting 87/63 L Blood Pressure- Standing 86/69 L Blood Pressure Blood Pressure [Left Arm] Blood Pressure Mean Blood Pressure Mean [Left Arm] Blood Pressure Position Pulse Oximetry Oxygen Delivery Method Room Air Sepsis Recent Fever Within 48 Hours Sepsis New/Unexplained Change in Mental Status Sepsis Action Taken by Nursing 06/21/23 09:33 06/21/23 09:37 Temperature Temperature Source Pulse Rate - Lying Pulse Rate - Sitting Pulse Rate - Standing Pulse Rate Pulse Rate [Apical] 67 65 Pulse Rhythm [Apical] Regular Respiratory Rate 19 16 Respiratory Effort / Characteristics Non-Labored Spontaneous Non-Labored Spontaneous Respiratory Depth Normal Normal Respiratory Pattern Regular Blood Pressure - Lying Blood Pressure - Sitting Blood Pressure- Standing Blood Pressure Blood Pressure [Left Arm] 87/59 L 111/65 Blood Pressure Mean Blood Pressure Mean [Left Arm] 68 80 Blood Pressure Position Pulse Oximetry 97 98 Oxygen Delivery Method Room Air Room Air Sepsis Recent Fever Within 48 Hours Sepsis New/Unexplained Change in Mental Status Sepsis Action Taken by Prison Medications Current Medication List: was personally reviewed by me Laboratory Data Attestation: I reviewed the patient's lab results. 06/22/23 05:45 06/22/23 05:45 Lab Results 04/04/24 04/04/24 04/04/24 Range/Units 08:00 08:41 09:37 WBC 6.87 (4.8-10.8) K/ul RBC 4.75 (4.20-5.40) M/uL Hgb 13.9 (12.0-16.0) g/dl Hct 40.7 (37.0-47.0) % MCV 85.7 (80.0-100.0) fL MCH 29.3 (25.0-34.0) pg MCHC 34.2 (32.0-36.0) g/dL RDW Std Deviation 40.9 (36.4-46.3) fL RDW Coeff of Loc 13.2 (11.5-14.5) % Plt Count 176 (130-400) K/uL MPV 11.0 (9.4-12.4) fL Immature Gran % (Auto) 0.6 % Neut % (Auto) 61.8 % Lymph % (Auto) 22.0 % Ogle % (Auto) 13.2 % Eos % (Auto) 1.7 % Baso % (Auto) 0.7 % Neut # (Auto) 4.24 (1.40-6.50) K/uL Lymph # (Auto) 1.51 (1.20-3.40) K/uL Ogle # (Auto) 0.91 H (0.11-0.59) K/uL Eos # (Auto) 0.12 (0.00-0.50) K/uL Baso # (Auto) 0.05 (0.00-0.20) K/uL Immature Gran # (Auto) 0.04 (0.01-0.20) K/uL PT 10.6 (9.0-12.0) Seconds INR 1.0 (0.9-1.1) APTT 21 (21-31) Seconds PTT Ratio 0.7 Sodium 135 L (136-145) mmol/L Potassium 3.7 (3.5-5.1) mmol/L Chloride 100 (98-107) mmol/L Carbon Dioxide 24 (21-32) mmol/L Anion Gap 11 (3-11) BUN 30 H (6-23) mg/dl Creatinine 1.66 H (0.6-1.2) mg/dl Est Cr Clr Drug Dosing 51.5 ml/min Est GFR ( Amer) 44.8 ml/min Est GFR (Non-Af Amer) 38.7 ml/min BUN/Creatinine Ratio 18.1 (10-20) Glucose 193 H (70-99(Fasting)) mg/dl Calcium 8.9 (8.6-10.3) mg/dl Magnesium 1.7 (1.7-2.4) mg/dl Total Bilirubin 0.7 (0.2-1.0) mg/dl AST 31 (13-39) U/L ALT 32 (7-52) U/L Alkaline Phosphatase 72 (34-104) U/L Troponin I High Sens 4.5 (0-14) pg/ml Total Protein 7.3 (6.0-8.3) gm/dl Albumin 4.4 (3.4-5.0) gm/dl Globulin 2.9 (2.5-4.0) gm/dl Albumin/Globulin Ratio 1.5 (0.9-2) TSH 2.117 (0.300-4.500) uIu/ml Urine Color Yellow Urine Appearance Cloudy A (Clear) Urine pH 5.5 (4.5-7.5) Ur Specific [place] 1.012 (1.000-1.030) Urine Protein Negative (Negative) Urine Glucose (UA) Negative (Negative) Urine Ketones Negative (Negative) Urine Blood 1+ H (Negative) Urine Nitrite Negative (Negative) Urine Bilirubin Negative (Negative) Urine Urobilinogen Negative (Negative) Ur Leukocyte Esterase Negative (Negative) Urine WBC (Auto) 1-5 (0-5) /hpf Urine RBC (Auto) 0-4 (0-4) /hpf U Hyaline Cast (Auto) 5-10 H (0-5) /lpf U Epithel Cells (Auto) >30 H (0-5) /lpf Urine Bacteria (Auto) Negative (Negative) Nasal Influ A H1 2008 PCR DETECTED A (NotDetected) Adenovirus (PCR) Not Detected (NotDetected) B. pertussis DNA (PCR) Not Detected (NotDetected) B.parapertussis DNA PCR Not Detected (NotDetected) C. pneumoniae DNA (PCR) Not Detected (NotDetected) Coronavirus OC43 (PCR) Not Detected (NotDetected) Coronavirus HKU1 (PCR) Not Detected (NotDetected) Coronavirus 229E (PCR) Not Detected (NotDetected) SARS-CoV-2 (PCR) Not Detected (NotDetected) Coronavirus NL63 (PCR) Not Detected (NotDetected) Human Metapneumovir PCR Not Detected (NotDetected) Influenza Type B (PCR) Not Detected (NotDetected) M. pneumoniae (PCR) Not Detected (NotDetected) Parainfluenza 1 (PCR) Not Detected (NotDetected) Parainfluenza 2 (PCR) Not Detected (NotDetected) Parainfluenza 3 (PCR) Not Detected (NotDetected) Parainfluenza 4 (PCR) Not Detected (NotDetected) RSV (PCR) Not Detected (NotDetected) Entero/Rhino (PCR) Not Detected (NotDetected) Administered Medications Amlodipine Besylate (Amlodipine Besylate 5 Mg Tab) 5 mg PO [facility] Stop: 07/22/23 08:59 Last Admin: 06/22/23 08:36 Dose: 5 mg Documented By: PK Aspirin (Aspirin 81 Mg Ectab) 81 mg PO [facility] Stop: 07/22/23 08:59 Last Admin: 06/22/23 08:37 Dose: 81 mg Documented By: PK Atorvastatin Calcium (Atorvastatin 40 Mg Tab) 80 mg PO [facility] Stop: 07/22/23 08:59 Last Admin: 06/22/23 08:35 Dose: 80 mg Documented By: PK Carvedilol (Carvedilol 6.25 Mg Tab) 6.25 mg PO BIDM [facility] Stop: 07/21/23 16:59 Last Admin: 06/22/23 08:35 Dose: 6.25 mg Documented By: Admin: 06/21/23 20:48 Dose: 6.25 mg Documented By: AKChristelle Clopidogrel Bisulfate (Clopidogrel Bisulfate 75 Mg Tab) 75 mg PO DAILY [facility] Stop: 07/22/23 08:59 Last Admin: 06/22/23 08:35 Dose: 75 mg Documented By: PK Cyanocobalamin (Cyanocobalamin (B-12) 500 Mcg Tablet) 500 mcg PO DAILY [facility] Stop: 07/22/23 08:59 Last Admin: 06/22/23 08:36 Dose: 500 mcg Documented By: PK Enoxaparin Sodium (Enoxaparin Inj 40 Mg/0.4 Ml Syr) 40 mg SQ Q24H [facility] Stop: 07/21/23 13:44 Last Admin: 06/21/23 15:05 Dose: 40 mg Documented By: MH Ferrous Sulfate (Ferrous Sulfate 325 Mg Tab) 325 mg PO DAILY [facility] Stop: 07/22/23 08:59 Last Admin: 06/22/23 08:36 Dose: 325 mg Documented By: PK Fluoxetine HCl (Fluoxetine Hcl 10 Mg Cap) 30 mg PO DAILY [facility] Stop: 07/22/23 08:59 Last Admin: 06/22/23 08:36 Dose: 30 mg Documented By: PK Fluticasone Propionate (Fluticasone Propionate Na Spr 16 Gm Btl) 2 sprays NA DAILY [facility] Stop: 07/22/23 08:59 Last Admin: 06/22/23 08:33 Dose: 2 sprays Documented By: PK Insulin Aspart (Insulin Aspart Per Unit Charge) 0 units SC ACHS [facility] Stop: 07/21/23 16:29 Last Admin: 06/22/23 08:48 Dose: 3 units Documented By: PK Co-signed By: OO Admin: 06/21/23 20:46 Dose: 1 units Documented By: AKD Co-signed By: ARR Admin: 06/21/23 18:29 Dose: 2 units Documented By: MARY Co-signed By: STERLING Pantoprazole Sodium (Pantoprazole 40 Mg Tab) 40 mg PO DAILY [facility]; Protocol Stop: 07/22/23 08:59 Last Admin: 06/22/23 08:36 Dose: 40 mg Documented By: PK Discontinued Medications Sodium Chloride (Nss) 1,000 mls @ 999 mls/hr IV .Q1H1M [facility] Stop: 06/21/23 09:45 Last Infusion: 06/21/23 09:37 Dose: Infused Documented By: Admin: 06/21/23 08:36 Dose: 999 mls/hr Documented By: SUDHIR Sodium Chloride (Nss) 500 mls @ 999 mls/hr IV .Q31M ONE Stop: 06/21/23 09:31 Last Infusion: 06/21/23 10:59 Dose: Infused Documented By: Admin: 06/21/23 10:28 Dose: 999 mls/hr Documented By: SUDHIR Sodium Chloride (Nss) 1,000 mls @ 999 mls/hr IV .Q1H1M ONE Stop: 06/21/23 10:17 Last Infusion: 06/21/23 10:40 Dose: Infused Documented By: Admin: 06/21/23 09:39 Dose: 999 mls/hr Documented By: SUDHIR Lactated Ringer's (Lr) 1,000 mls @ 100 mls/hr IV .Q10H [facility] Stop: 06/22/23 09:14 Last Infusion: 06/22/23 09:57 Dose: Infused Documented By: Admin: 06/22/23 08:38 Dose: 100 mls/hr Documented By: Infusion: 06/22/23 08:38 Dose: Infused Documented By: Admin: 06/22/23 00:12 Dose: 100 mls/hr Documented By: Infusion: 06/22/23 00:12 Dose: Infused Documented By: Admin: 06/21/23 14:21 Dose: 100 mls/hr Documented By: SUDHIR Oseltamivir Phosphate (Oseltamivir Phosphate Susp 30 Mg/5 Ml Udp) 30 mg PO BID [facility]; Protocol Stop: 06/26/23 20:59 Last Admin: 06/22/23 08:34 Dose: 30 mg Documented By: Admin: 06/21/23 20:48 Dose: 30 mg Documented By: MATT Potassium Chloride (Potassium Chloride Crtab 20 Meq Tabcr) 40 meq PO ONE ONE Stop: 06/22/23 08:56 Last Admin: 06/22/23 09:54 Dose: 40 meq Documented By: ARNOLDO Imaging Data Radiologist's Impression: Chest X-Ray 06/21/23 08:33 XR chest 1V portable HISTORY: 37 years-old Female syncope acute chest trauma with syncope COMPARISON: 06/13/2023 TECHNIQUE: AP view of the chest FINDINGS: Cardiomediastinal and hilar silhouettes are unchanged. No pneumothorax, pleural effusion or pulmonary edema. Mild bibasilar densities favor atelectasis. Bones appear grossly intact. IMPRESSION: No acute process. ACT 112: Negative or not required by law. The above report was generated using voice recognition software. It may contain grammatical, syntax or spelling errors. Electronically signed by: Jarrell Bocanegra M.D. 06/21/2023 9:41 AM Discharge Plan Visit Data Chief Complaint: Syncope Stated Complaint: NEAR SYNCOPE, HYPOTENSION, ILLNESS ED Provider: Tony Woodson Discharge Problem: CHAVO (acute kidney injury), Syncope, Hypotension, Medication side effect Patient Disposition: Admitted As Inpatient Discharge Instructions Interventions: ED Discharge Assessment Last Done: 06/21/23 13:15 Discharge Problem: Syncope Qualifiers: Syncope type: unspecified Qualified Code(s): R55 - Syncope and collapse Hypotension Qualifiers: Hypotension type: unspecified hypotension type Qualified Code(s): I95.9 - Hypotension, unspecified
[2023-06-21] MEDS: SODIUM CHLORIDE 0.9% 1,000 ML IV SCH (08:36)
[2023-06-21 08:52] LABS: Albumin Globulin Ratio 1.5 (0.9-2); Albumin Level 4.4 gm/dl (3.4-5.0); BUN Creatinine Ratio 18.1 (10-20); Bilirubin,Total 0.7 mg/dl (0.2-1.0); Calcium 8.9 mg/dl (8.6-10.3); Creatinine Clr Calc Pharmacy 51.5 ml/min; Est GFR (African American) 44.8 ml/min; Est GFR (Non-African American) 38.7 ml/min; Globulin 2.9 gm/dl (2.5-4.0); Potassium 3.7 mmol/L (3.5-5.1); Total Protein 7.3 gm/dl (6.0-8.3)
[2023-06-21 08:57] LABS: Troponin I High Sensitivity 4.5 pg/ml (0-14)
[2023-06-21 09:11] LABS: Magnesium 1.7 mg/dl (1.7-2.4)
[2023-06-21 09:18] LABS: Partial Thromboplastin Ratio 0.7; Partial Thromboplastin Time 21 Seconds (21-31); Prothrombin Time 10.6 Seconds (9.0-12.0)
[2023-06-21 09:31] LABS: Thyroid Stimulating Hormone 2.117 uIu/ml (0.300-4.500)
[2023-06-21] MEDS: SODIUM CHLORIDE 0.9% 1,000 ML IV ONE (09:39)
--- NOTE | 2023-06-21 09:43 | XRay Report ---
XR chest 1V portable HISTORY: 37 years-old Female syncope acute chest trauma with syncope COMPARISON: 06/13/2023 TECHNIQUE: AP view of the chest FINDINGS: Cardiomediastinal and hilar silhouettes are unchanged. No pneumothorax, pleural effusion or pulmonary edema. Mild bibasilar densities favor atelectasis. Bones appear grossly intact. IMPRESSION: No acute process. ACT 112: Negative or not required by law. The above report was generated using voice recognition software. It may contain grammatical, syntax o r spelling errors. Electronically signed by: Jarrell Bocanegra M.D. 06/21/2023 9:41 AM
[2023-06-21 09:46] LABS: Adenovirus PCR Not Detected (NotDetected); Bordetella parapertussis PCR Not Detected (NotDetected); Bordetella pertussis PCR Not Detected (NotDetected); Chlamydia pneumoniae PCR Not Detected (NotDetected); Coronavirus 229E PCR Not Detected (NotDetected); Coronavirus CoV-2 (COVID19)PCR Not Detected (NotDetected); Coronavirus HKU1 PCR Not Detected (NotDetected); Coronavirus NL63 PCR Not Detected (NotDetected); Coronavirus OC43PCR Not Detected (NotDetected); Human Metapneumovirus PCR Not Detected (NotDetected); Influenza A (H1 2009) PCR DETECTED (NotDetected); Influenza B PCR Not Detected (NotDetected); Mycoplasma pneumoniae PCR Not Detected (NotDetected); Parainfluenza Virus 1 PCR Not Detected (NotDetected); Parainfluenza Virus 2 PCR Not Detected (NotDetected); Parainfluenza Virus 3 PCR Not Detected (NotDetected); Parainfluenza Virus 4 PCR Not Detected (NotDetected); Respiratory Syncytial VirusPCR Not Detected (NotDetected); Rhinovirus/Enterovirus PCR Not Detected (NotDetected)
[2023-06-21 10:09] LABS: Appearance Urine Cloudy (Clear); Bacteria Urine Automated Negative (Negative); Bilirubin Urine Negative (Negative); Blood Urine 1+ (Negative); Color Urine Yellow; Epithelial Cell Urine Auto >30 /lpf (0-5); Glucose Urine UA Negative (Negative); Ketones Urine Negative (Negative); Leukocyte Esterase Urine Negative (Negative); Nitrite Urine Negative (Negative); Protein Urine Negative (Negative); RBC Urine Automated 0-4 /hpf (0-4); Specific Gravity Urine 1.012 (1.000-1.030); Urobilinogen Urine Negative (Negative); pH Urine 5.5 (4.5-7.5)
[2023-06-21] MEDS: SODIUM CHLORIDE 0.9% 500 ML IV ONE (10:28)
--- NOTE | 2023-06-21 10:38 | History & Physical Report ---
Date of Service June 21, 2023 Assessment & Plan (1) Syncope: (2) Hypotension: (3) CHAVO (acute kidney injury): (4) History of coronary artery disease: Plan 37 year old female with h/o CAD s/p stenting, HTN, DM who presented with a syncopal episode in her car along with hypotension Syncope likely from hypotension due to overmedication- BP noted in 70s by EMS and given fluid bolus with improvement in BP, 110s during my encounter. Took all her 4 BP meds this morning. Will continue IVF. Continue tele, orthostatic vitals. D dimer negative ruling out PE. TSH normal. Imaging negative. RVP negative except for influenza A. Hypertension- presented with hypotension and syncope. Medications were uptitrated during recent hospitalization a week ago. With hypotension and concern for overmedication yokasta with CHAVO, will hold losartan and HCTZ. Will continue coreg and amlod with hold parameters. CHAVO- Cr baseline 0.8, currently 1.6. Likely hemodynamic. Will continue ivf. Hold losartan and HCTZ. Recheck in am. If not improving, renal ultrasound and nephro eval. DM-2- hold metformin. continue SSI, carb diet. Influenza A- Started on tamiflu. Also, she is still having bright green phlegm despite receiving ABX for 17 days (2 courses) for otitis medica. Will check sputum clx for any bacterial infection which might have not been treated. H/o CAD s/p stenting May 2022- stable. continue DAPT, statin, BB DVT ppx- sc lovenox Dispo- PCU on tele Time spent- approx 86 mins History of Present Illness Chief Complaint: syncope, hypotension Primary Care Provider: NO PCP 37 year old female with history of CAD status post stenting, hypertension, diabetes, GERD who presented to ED with syncopal episode today. Patient states she was eating a hot dog this morning when she did not feel quite right. States that she felt lightheaded and dizzy. 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 EMS was called and her blood pressure was noted to be in 70s. IV fluids started and she will go to the ED. No seizure-like episodes. No chest pain or shortness of breath. No nausea vomiti ng or diarrhea. No chest pain or shortness of breath. During the code, patient's blood pressure had improved to 115 with fluid boluses and felt about 50% better. She denies any similar episodes before. She is compliant with all her medications and had taken all her four blood pressure medications this morning. Allergies Allergy/AdvReac Type Severity Reaction Status Date / Time spinach Allergy Severe Swelling Unverified 06/21/23 11:10 of Lip/Tongue/Throat cat dander Allergy Sneezing Verified 06/21/23 11:09 Penicillins Allergy Difficulty Verified 06/21/23 11:09 Breathing Home Medications Medication Instructions Recorded Confirmed Type aspirin 81 mg tablet,delayed 81 mg PO QAM 06/13/23 06/21/23 History release atorvastatin 80 mg tablet 80 mg PO QPM 06/13/23 06/21/23 History cetirizine 10 mg tablet 10 mg PO DAILY PRN ALLERGIES 06/13/23 06/21/23 History clopidogrel 75 mg tablet 75 mg PO DAILY 06/13/23 06/21/23 History cyanocobalamin (vitamin B-12) 500 500 mcg PO DAILY 06/13/23 06/21/23 History mcg tablet ferrous sulfate 325 mg (65 mg 325 mg PO DAILY 06/13/23 06/21/23 History iron) tablet (iron) fluoxetine 10 mg capsule 0 mg PO DAILY 06/13/23 06/21/23 History fluoxetine 20 mg capsule 0 mg PO DAILY 06/13/23 06/21/23 History fluticasone propionate 50 2 spray intranasal DAILY 06/13/23 06/21/23 History mcg/actuation nasal spray,suspension hydrochlorothiazide 25 mg tablet 25 mg PO DAILY 06/13/23 06/21/23 History metformin 500 mg tablet 500 mg PO DAILY 06/13/23 06/21/23 History omeprazole 40 mg capsule,delayed 40 mg PO DAILY 06/13/23 06/21/23 History release amlodipine 5 mg tablet (Norvasc) 5 mg PO QAM #30 tabs 06/14/23 06/21/23 Rx losartan 100 mg tablet 100 mg PO DAILY #30 tabs 06/14/23 06/21/23 Rx carvedilol 6.25 mg tablet 6.25 mg PO BID 06/21/23 06/21/23 History Past Med/Surg History Medical History (Updated 06/21/23 @ 10:38 by Preston Cedillo MD) History of coronary artery disease Social History Smoking Status: Current every day smoker Tobacco Type: Cigarettes Do You Dip or Chew Tobacco: No; Hx Alcohol Use: Yes Alcohol type: hard liquor Hx Substance Use: No Preferred Language: Georgian Communication Ability: Effective Machine Burrer Required: No Beliefs That Will Affect Care: None Current Living Situation: Family Feels Safe at Home: Yes Assistive Devices: None Review of Systems Review of Systems: All systems reviewed & are unremarkable except as noted in Subjective Physical Exam Physical Exam: General: Lying comfortably in bed, not in distress, on room air HEENT: EOMI, ERASTO, MMM Chest: Clear breath sounds bilaterally, no wheezes or crackles CVS: Regular rate and rhythm, normal heart sounds, no murmur Abdomen: Soft, non tender, not distended, normal bowel sounds Neuro: Awake, alert, oriented, conversing well, non focal Extremities: No cyanosis, clubbing or edema Results & Data Results & Data Vital Signs (Past 12 Hours) Vital Signs Temp Pulse Pulse Resp BP BP Pulse Ox 06/21/23 09:37 65 16 111/65 98 06/21/23 09:33 67 19 87/59 L 97 06/21/23 08:13 75 06/21/23 08:06 06/21/23 08:06 06/21/23 08:02 06/21/23 07:49 36.4 C L 72 16 91/61 L 96 O2 Del Method 06/21/23 09:37 Room Air 06/21/23 09:33 Room Air 06/21/23 08:13 06/21/23 08:06 Room Air 06/21/23 08:06 Room Air 06/21/23 08:02 Room Air 06/21/23 07:49 Room Air Laboratory Results Short CBC 06/21/23 Range/Units 08:00 WBC 6.87 (4.8-10.8) K/ul Hgb 13.9 (12.0-16.0) g/dl Hct 40.7 (37.0-47.0) % Plt Count 176 (130-400) K/uL BMP 06/21/23 08:00 Sodium 135 L Potassium 3.7 Chloride 100 Carbon Dioxide 24 BUN 30 H Creatinine 1.66 H Glucose 193 H Calcium 8.9 Liver Function 06/21/23 Range/Units 08:00 Total Bilirubin 0.7 (0.2-1.0) mg/dl AST 31 (13-39) U/L ALT 32 (7-52) U/L Alkaline Phosphatase 72 (34-104) U/L Albumin 4.4 (3.4-5.0) gm/dl Urine 06/21/23 Range/Units 09:37 Urine Color Yellow Urine Appearance Cloudy A (Clear) Urine pH 5.5 (4.5-7.5) Ur Specific [place] 1.012 (1.000-1.030) Urine Protein Negative (Negative) Urine Glucose (UA) Negative (Negative) Diagnostic Findings Chest X-Ray 06/21/23 08:33 XR chest 1V portable HISTORY: 37 years-old Female syncope acute chest trauma with syncope COMPARISON: 06/13/2023 TECHNIQUE: AP view of the chest FINDINGS: Cardiomediastinal and hilar silhouettes are unchanged. No pneumothorax, pleural effusion or pulmonary edema. Mild bibasilar densities favor atelectasis. Bones appear grossly intact. IMPRESSION: No acute process. ACT 112: Negative or not required by law. The above report was generated using voice recognition software. It may contain grammatical, syntax or spelling errors. Electronically signed by: Jarrell Bocanegra M.D. 06/21/2023 9:41 AM Code Status & VTE Plan VTE Prophylaxis Plan VTE Prophylaxis will be ordered: Yes
[2023-06-21] MEDS ORDERED: CETIRIZINE HCL 10 MG TABLET PO PRN (11:45)
[2023-06-21] MEDS ORDERED: GLUCOSE 10 TAB/TUBE PO PRN (11:47)
[2023-06-21] MEDS ORDERED: DEXTROSE 50% 50 ML SYRINGE IV PRN (11:47)
[2023-06-21] MEDS ORDERED: CARBOHYDRATES FOR HYPOGLYCEMIA PO PRN (11:47)
[2023-06-21] MEDS ORDERED: GLUCOSE 40% GEL 15 GM TUBE PO PRN (11:47)
[2023-06-21] MEDS ORDERED: GLUCAGON FOR INJ 1 MG VIAL SQ PRN (11:47)
[2023-06-21 12:41] LABS: D Dimer 230 ug/L FEU (0-500)
[2023-06-21] MEDS: LACTATED RINGER'S 1,000 ML IV SCH (14:21)
[2023-06-21] MEDS: ENOXAPARIN INJ 40 MG/0.4 ML SYR SQ SCH (15:05)
[2023-06-21] MEDS: INSULIN ASPART PER UNIT CHARGE SC SCH (18:29)
[2023-06-21] MEDS: OSELTAMIVIR PHOSPHATE SUSP 30 MG/5 ML UDP PO SCH (20:48)
[2023-06-21] MEDS: carvediloL 6.25 MG TAB PO SCH (20:48)
[2023-06-22 06:28] LABS: Hematocrit (blood only) 34.5 % (37.0-47.0); Hemoglobin 11.6 g/dl (12.0-16.0); Mean Corpuscular Hemoglobin 29.6 pg (25.0-34.0); Mean Corpuscular Hgb Conc 33.6 g/dL (32.0-36.0); Mean Platelet Volume 10.9 fL (9.4-12.4); Platelet Count 130 K/uL (130-400); RDW Coefficient of Variation 13.2 % (11.5-14.5); RDW Standard Deviation 42.5 fL (36.4-46.3); Red Blood Count 3.92 M/uL (4.20-5.40); White Blood Count 4.76 K/ul (4.8-10.8)
[2023-06-22 06:46] LABS: BUN Creatinine Ratio 21.2 (10-20); Calcium 8.7 mg/dl (8.6-10.3); Creatinine Clr Calc Pharmacy 75.2 ml/min; Est GFR (African American) 71.4 ml/min; Est GFR (Non-African American) 61.6 ml/min; Potassium 3.3 mmol/L (3.5-5.1)
[2023-06-22] MEDS: FLUTICASONE PROPIONATE NA SPR 16 GM BTL SCH (08:33)
[2023-06-22] MEDS: ATORVASTATIN 40 MG TAB PO SCH (08:35)
[2023-06-22] MEDS: CLOPIDOGREL BISULFATE 75 MG TAB PO SCH (08:35)
[2023-06-22] MEDS: CYANOCOBALAMIN (B-12) 500 MCG TABLET PO SCH (08:36)
[2023-06-22] MEDS: FLUoxetine HCL 10 MG CAP PO SCH (08:36)
[2023-06-22] MEDS: FERROUS SULFATE 325 MG TAB PO SCH (08:36)
[2023-06-22] MEDS: amLODIPine BESYLATE 5 MG TAB PO SCH (08:36)
[2023-06-22] MEDS: PANTOprazole 40 MG TAB PO SCH (08:36)
[2023-06-22] MEDS: ASPIRIN 81 MG ECTAB PO SCH (08:37)
[2023-06-22] MEDS ORDERED: FLUoxetine HCL 20 MG CAP PO SCH (09:00)
[2023-06-22] MEDS ORDERED: LOSARTAN POTASSIUM 50 MG TAB PO SCH (09:00)
[2023-06-22] MEDS: POTASSIUM CHLORIDE CRTAB 20 MEQ TABCR PO ONE (09:54)
--- NOTE | 2023-06-22 12:55 | Hospitalist Progress Note ---
Date of Service June 22, 2023 Assessment & Plan (1) Syncope: (2) Hypotension: (3) CHAVO (acute kidney injury): (4) History of coronary artery disease: Plan 37 year old female with h/o CAD s/p stenting, HTN, DM who presented with a syncopal episode in her car along with hypotension Syncope Likely secondary to dehydration, hypotension Received IV fluids Blood pressure improved Orthostatics not contributory No issues on monitor Continue to hold losartan, HCTZ Influenza infection --CXR:No acute process. Continue Tamiflu Saturating well on room air Hypertension Presented with hypotension and syncope. Continue amlodipine, Coreg with holding parameters Losartan, HCTZ held Monitor BP CHAVO Cr levels improved with IV fluids Monitor renal function Avoid nephrotoxic agents as able DM II hold metformin continue SSI, carb diet. H/o CAD s/p stenting May 2022- stable continue DAPT, statin, BB DVT Px: Lovenox SQ Code Status Full Code Admission and Anticipated Discharge Date Admission Date: June 21, 2023 Subjective Patient is seen and examined at bedside States feeling a lot better today Offers no new complaints Discussed with patient's family at bedside Blood pressure much improved Denies any chest pain, dyspnea, dizziness, nausea, vomiting, abdominal pain Renal function seem to be back to baseline Plan to be discharged home today Review of Systems Review of Systems: All systems reviewed & are unremarkable except as noted in Subjective Physical Exam Physical Exam: Physical Exam: Vitals signs as noted above General Appearance:Obese, no apparent distress Head: normocephalic, Atraumatic Eyes: normal inspection, EOMI Neck: supple, Trachea midline Respiratory/Chest: Normal breath sounds, CTA, No accessory muscle use Cardiovascular: S1, S2, No murmur Abdomen/GI:Soft, Non tender, Bowel sounds present Extremities/Musculoskeletal:normal inspection, no edema Neurologic/Psych:AAOX3, grossly no focal neurological deficits Skin: normal color, warm Results & Data Results & Data Vital Signs (Past 12 Hours) Vital Signs Temp Pulse Resp BP Pulse Ox O2 Del Method 06/22/23 11:31 36.6 C 54 L 18 130/86 94 Room Air 06/22/23 07:15 36.7 C 59 L 18 151/94 H 93 Room Air 06/22/23 03:00 37.2 C 62 16 120/72 94 Room Air Laboratory Results Short CBC 06/22/23 Range/Units 05:45 WBC 4.76 L (4.8-10.8) K/ul Hgb 11.6 L (12.0-16.0) g/dl Hct 34.5 L (37.0-47.0) % Plt Count 130 (130-400) K/uL [facility] 06/22/23 05:45 Sodium 138 Potassium 3.3 L Chloride 104 Carbon Dioxide 27 BUN 24 H Creatinine 1.13 D Glucose 121 H Calcium 8.7 (1) Syncope Syncope type: unspecified Qualified Code(s): R55 - Syncope and collapse (2) Hypotension Hypotension type: unspecified hypotension type Qualified Code(s): I95.9 - Hypotension, unspecified
--- NOTE | 2023-06-22 13:04 | Discharge Summary ---
Date of Service June 22, 2023 Admission HPI Per Admitting Provider 37 year old female with history of CAD status post stenting, hypertension, diabetes, GERD who presented to ED with syncopal episode today. Patient states she was eating a hot dog this morning when she did not feel quite right. States that she felt lightheaded and dizzy. 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 EMS was called and her blood pressure was noted to be in 70s. IV fluids started and she will go to the ED. No seizure-like episodes. No chest pain or shortness of breath. No nausea vomiting or diarrhea. No chest pain or shortness of breath. During the code, patient's blood pressure had improved to 115 with fluid boluses and felt about 50% better. She denies any similar episodes before. She is compliant with all her medications and had taken all her four blood pressure medications this morning. Admission Exam Per Admitting Provider General- Not in distress Head- atraumatic Eyes- PERRL. ENT- oropharynx clear Neck- supple, no JVD. Lungs- clear to auscultation no wheezing or crackles. Heart- regular rhythm; no murmur, no gallop. Abdomen- normal bowel sounds, soft, nontender, no distension. Extremities- no pretibial edema, no erythema seen. Neuro- alert, oriented PERRL, no facial palsy; no dysarthria; moves extremities. Skin- warm & dry Principal Diagnosis Syncope Influenza infection Acute kidney injury Discharge Data Allergies Allergy/AdvReac Type Severity Reaction Status Date / Time spinach Allergy Severe Swelling Unverified 06/21/23 11:10 of Lip/Tongue/Throat cat dander Allergy Sneezing Verified 06/21/23 11:09 Penicillins Allergy Difficulty Verified 06/21/23 11:09 Breathing Consultations 06/21/23 10:11 ED Decision to Admit Stat Procedures Performed Laboratory Results WBC 4.76 K/ul (4.8-10.8) L 06/22/23 05:45 RBC 3.92 M/uL (4.20-5.40) L 06/22/23 05:45 Hgb 11.6 g/dl (12.0-16.0) L 06/22/23 05:45 Hct 34.5 % (37.0-47.0) L 06/22/23 05:45 MCV 88.0 fL (80.0-100.0) 06/22/23 05:45 MCH 29.6 pg (25.0-34.0) 06/22/23 05:45 MCHC 33.6 g/dL (32.0-36.0) 06/22/23 05:45 RDW Std Deviation 42.5 fL (36.4-46.3) 06/22/23 05:45 RDW Coeff of Loc 13.2 % (11.5-14.5) 06/22/23 05:45 Plt Count 130 K/uL (130-400) 06/22/23 05:45 MPV 10.9 fL (9.4-12.4) 06/22/23 05:45 Immature Gran % (Auto) 0.6 % 06/21/23 08:00 Neut % (Auto) 61.8 % 06/21/23 08:00 Lymph % (Auto) 22.0 % 06/21/23 08:00 [place] % (Auto) 13.2 % 06/21/23 08:00 Eos % (Auto) 1.7 % 06/21/23 08:00 Baso % (Auto) 0.7 % 06/21/23 08:00 Neut # (Auto) 4.24 K/uL (1.40-6.50) 06/21/23 08:00 Lymph # (Auto) 1.51 K/uL (1.20-3.40) 06/21/23 08:00 [place] # (Auto) 0.91 K/uL (0.11-0.59) H 06/21/23 08:00 Eos # (Auto) 0.12 K/uL (0.00-0.50) 06/21/23 08:00 Baso # (Auto) 0.05 K/uL (0.00-0.20) 06/21/23 08:00 Immature Gran # (Auto) 0.04 K/uL (0.01-0.20) 06/21/23 08:00 PT 10.6 Seconds (9.0-12.0) 06/21/23 08:00 INR 1.0 (0.9-1.1) 06/21/23 08:00 APTT 21 Seconds (21-31) 06/21/23 08:00 PTT Ratio 0.7 06/21/23 08:00 D-Dimer 230 ug/L FEU (0-500) 06/21/23 11:18 Sodium 138 mmol/L (136-145) 06/22/23 05:45 Potassium 3.3 mmol/L (3.5-5.1) L 06/22/23 05:45 Chloride 104 mmol/L (98-107) 06/22/23 05:45 Carbon Dioxide 27 mmol/L (21-32) 06/22/23 05:45 Anion Gap 7 (3-11) 06/22/23 05:45 BUN 24 mg/dl (6-23) H 06/22/23 05:45 Creatinine 1.13 mg/dl (0.6-1.2) D 06/22/23 05:45 Est Cr Clr Drug Dosing 75.2 ml/min 06/22/23 05:45 Est GFR ( Amer) 71.4 ml/min 06/22/23 05:45 Est GFR (Non-Af Amer) 61.6 ml/min 06/22/23 05:45 BUN/Creatinine Ratio 21.2 (10-20) H 06/22/23 05:45 Glucose 121 mg/dl (70-99(Fasting)) H 06/22/23 05:45 POC Glucose 137 mg/dl (70-99) H 06/22/23 11:32 Calcium 8.7 mg/dl (8.6-10.3) 06/22/23 05:45 Magnesium 1.7 mg/dl (1.7-2.4) 06/21/23 08:00 Total Bilirubin 0.7 mg/dl (0.2-1.0) 06/21/23 08:00 AST 31 U/L (13-39) 06/21/23 08:00 ALT 32 U/L (7-52) 06/21/23 08:00 Alkaline Phosphatase 72 U/L (34-104) 06/21/23 08:00 Troponin I High Sens 4.5 pg/ml (0-14) 06/21/23 08:00 Total Protein 7.3 gm/dl (6.0-8.3) 06/21/23 08:00 Albumin 4.4 gm/dl (3.4-5.0) 06/21/23 08:00 Globulin 2.9 gm/dl (2.5-4.0) 06/21/23 08:00 Albumin/Globulin Ratio 1.5 (0.9-2) 06/21/23 08:00 TSH 2.117 uIu/ml (0.300-4.500) 06/21/23 08:00 Urine Color Yellow 06/21/23 09:37 Urine Appearance Cloudy (Clear) A 06/21/23 09:37 Urine pH 5.5 (4.5-7.5) 06/21/23 09:37 Ur Specific [place] 1.012 (1.000-1.030) 06/21/23 09:37 Urine Protein Negative (Negative) 06/21/23 09:37 Urine Glucose (UA) Negative (Negative) 06/21/23 09:37 Urine Ketones Negative (Negative) 06/21/23 09:37 Urine Blood 1+ (Negative) H 06/21/23 09:37 Urine Nitrite Negative (Negative) 06/21/23 09:37 Urine Bilirubin Negative (Negative) 06/21/23 09:37 Urine Urobilinogen Negative (Negative) 06/21/23 09:37 Ur Leukocyte Esterase Negative (Negative) 06/21/23 09:37 Urine WBC (Auto) 1-5 /hpf (0-5) 06/21/23 09:37 Urine RBC (Auto) 0-4 /hpf (0-4) 06/21/23 09:37 U Hyaline Cast (Auto) 5-10 /lpf (0-5) H 06/21/23 09:37 U Epithel Cells (Auto) >30 /lpf (0-5) H 06/21/23 09:37 Urine Bacteria (Auto) Negative (Negative) 06/21/23 09:37 Nasal Influ A H1 2009 PCR DETECTED (NotDetected) A 06/21/23 08:41 Adenovirus (PCR) Not Detected (NotDetected) 06/21/23 08:41 B. pertussis DNA (PCR) Not Detected (NotDetected) 06/21/23 08:41 B.parapertussis DNA PCR Not Detected (NotDetected) 06/21/23 08:41 C. pneumoniae DNA (PCR) Not Detected (NotDetected) 06/21/23 08:41 Coronavirus OC43 (PCR) Not Detected (NotDetected) 06/21/23 08:41 Coronavirus HKU1 (PCR) Not Detected (NotDetected) 06/21/23 08:41 Coronavirus 229E (PCR) Not Detected (NotDetected) 06/21/23 08:41 SARS-CoV-2 (PCR) Not Detected (NotDetected) 06/21/23 08:41 Coronavirus NL63 (PCR) Not Detected (NotDetected) 06/21/23 08:41 Human Metapneumovir PCR Not Detected (NotDetected) 06/21/23 08:41 Influenza Type B (PCR) Not Detected (NotDetected) 06/21/23 08:41 M. pneumoniae (PCR) Not Detected (NotDetected) 06/21/23 08:41 Parainfluenza 1 (PCR) Not Detected (NotDetected) 06/21/23 08:41 Parainfluenza 2 (PCR) Not Detected (NotDetected) 06/21/23 08:41 Parainfluenza 3 (PCR) Not Detected (NotDetected) 06/21/23 08:41 Parainfluenza 4 (PCR) Not Detected (NotDetected) 06/21/23 08:41 RSV (PCR) Not Detected (NotDetected) 06/21/23 08:41 Entero/Rhino (PCR) Not Detected (NotDetected) 06/21/23 08:41 Impressions Chest X-Ray 06/21/23 08:33 XR chest 1V portable HISTORY: 37 years-old Female syncope acute chest trauma with syncope COMPARISON: 06/13/2023 TECHNIQUE: AP view of the chest FINDINGS: Cardiomediastinal and hilar silhouettes are unchanged. No pneumothorax, pleural effusion or pulmonary edema. Mild bibasilar densities favor atelectasis. Bones appear grossly intact. IMPRESSION: No acute process. ACT 112: Negative or not required by law. The above report was generated using voice recognition software. It may contain grammatical, syntax or spelling errors. Electronically signed by: Jarrell Bocaengra M.D. 06/21/2023 9:41 AM Hospital Course (1) Syncope: (2) Hypotension: (3) CHAVO (acute kidney injury): (4) History of coronary artery disease: Plan 37 year old female with h/o CAD s/p stenting, HTN, DM who presented with a syncopal episode in her car along with hypotension Syncope Likely secondary to dehydration, hypotension Received IV fluids Blood pressure improved Orthostatics not contributory No issues on monitor Continue to hold losartan, HCTZ Influenza infection --CXR:No acute process. Continue Tamiflu Saturating well on room air Hypertension Presented with hypotension and syncope. Continue amlodipine, Coreg with holding parameters Losartan, HCTZ held Monitor BP CHAVO Cr levels improved with IV fluids Monitor renal function Avoid nephrotoxic agents as able DM II hold metformin continue SSI, carb diet. H/o CAD s/p stenting May 2022- stable continue DAPT, statin, BB DVT Px: Lovenox SQ Code Status Full Code Total Time Total Time Spent Total Time Spent (In Minutes): 49 minutes Discharge Plan Discharge Items Patient Disposition: Home - Self-Care Reason For Visit: SYNCOPE Discharge Diagnosis: Syncope Influenza infection Acute kidney injury Activity: Per Instructions section Exercise/Sports: Wait until after follow-up appointment Non-emergency contact: Primary Care Provider Call non-emergency contact if: you have any medication questions, your symptoms worsen, your pain is concerning for you and you have a fever Follow-up/Referrals: PCP,NO [Primary Care Provider] - Diet: Carb Consistent or DM2 and Heart Healthy Addtl Attending Provider Instructions: Follow-up with primary care physician in 1 week --- Complete the Tamiflu course as prescribed. --Monitor your blood pressure regularly as advised. Hold taking losartan, hydrochlorothiazide for now. If your blood pressure is high, discussed with your primary care physician for further adjustment of medications as needed. Seek immediate medical attention if your symptoms reoccur or worsen Please take all medications as instructed on discharge list below. Please call if you have any questions or problems. You can reach a [facility] hospitalist on duty at [facility] 24 hours a day by calling [phone] Pending Studies at Discharge: No Stand-Alone Forms: My [facility] Document Agility, Smoking Cessation Medications and DC Order Prescriptions: New oseltamivir [Tamiflu] 75 mg Capsule 75 mg PO BID Qty: 8 0RF Continued metformin 500 mg tablet 500 mg PO DAILY omeprazole 40 mg capsule,delayed release(DR/EC) 40 mg PO DAILY fluticasone propionate 50 mcg/actuation spray,suspension 2 spray INTRANASAL DAILY atorvastatin 80 mg tablet 80 mg PO QPM clopidogrel 75 mg tablet 75 mg PO DAILY fluoxetine 10 mg capsule 0 mg PO DAILY Rx Instructions: Take 10mg with 20 mg tab = 30 mg by mouth every morning fluoxetine 20 mg capsule 0 mg PO DAILY Rx Instructions: Take 20mg w/ 10mg to equal 30mg by mouth every morning cetirizine 10 mg Tablet 10 mg PO DAILY PRN (Reason: ALLERGIES) aspirin 81 mg tablet,delayed release (DR/EC) 81 mg PO QAM cyanocobalamin (vitamin B-12) 500 mcg tablet 500 mcg PO DAILY ferrous sulfate [iron] 325 mg (65 mg iron) Tablet 325 mg PO DAILY amlodipine [Norvasc] 5 mg Tablet 5 mg PO QAM Qty: 30 0RF carvedilol 6.25 mg tablet 6.25 mg PO BID Held hydrochlorothiazide 25 mg tablet 25 mg PO DAILY Hold Instructions: Until further instructions from your primary care physician. losartan 100 mg tablet 100 mg PO DAILY Qty: 30 0RF Hold Instructions: Until further instructions from your primary care physician. Discharge Orders: Discharge Order (Routine); Ordered 06/22/23 Ordered By: Ifeanyi Fisher Admission Data Admit Date/Time: 06/21/23 10:35 Attending Provider: Ifeanyi Fisher Admit Provider: Preston Cedillo Primary Care Provider: PCP,NO Other Providers: Preston Cedillo
[2023-06-22] MEDS ORDERED: OSELTAMIVIR PHOSPHATE 75 MG CAP PO SCH (21:00)
--- NOTE | 2023-06-23 06:44 | Electrocardiogram Report ---
Test Reason : Blood Pressure : / mmHG Vent. Rate : 069 BPM Atrial Rate : 069 BPM P-R Int : 158 ms QRS Dur : 072 ms QT Int : 414 ms P-R-T Axes : 054 005 -17 degrees QTc Int : 443 ms Normal sinus rhythm Nonspecific T wave abnormality Abnormal ECG When compared with ECG of 13-JUN-2023 19:58, No significant change was found Confirmed by Zheng Arthur ([id number]) on 06/23/2023 6:44:04 AM Referred By: Confirmed By:Zheng Arthur
--- NOTE | 2023-06-23 07:15 | Electrocardiogram Report ---
Test Reason : Blood Pressure : / mmHG Vent. Rate : 064 BPM Atrial Rate : 064 BPM P-R Int : 162 ms QRS Dur : 080 ms QT Int : 512 ms P-R-T Axes : 055 038 -07 degrees QTc Int : 528 ms Normal sinus rhythm Nonspecific T wave abnormality Abnormal ECG When compared with ECG of 21-JUN-2023 07:55, (unconfirmed) No significant change Confirmed by Zheng Arthur ([id number]) on 06/23/2023 7:15:13 AM Referred By: REFERRED SELF Confirmed By:Zheng Arthur
== END 2023-06-22 13:45 | disposition home or self-care (01) ==
LOC: EDINP 07:48 → ED 07:48 → SUATTDRO 10:35 → 4W 13:15